=== PATIENT | male | born 1965 | race Caucasian/White ===

== ENCOUNTER → 2016-10-19 | Outpatient (CLI) | payer BC ==
[2016-10-19 11:13] LABS: BASO # 0.1 K/mm3 (0.0-0.2); BASO % 0.8 % (0.0-1.0); EOS # 0.5 K/mm3 (0.0-0.50); EOS % 6.4 % (0.0-3.0); LARGE UNSTAINED CELL # 0.1 K/mm3 (0.0-0.4); LARGE UNSTAINED CELL % 1.6 % (0.0-4.0); LYMPH # 1.9 K/mm3 (1.5-4.5); LYMPH % 23.1 % (24.0-44.0); MEAN CORPUSCULAR HEMOGLOBIN 33.8 pg (27.0-33.0); MEAN CORPUSCULAR HGB CONC 33.2 g/dl (32.0-36.5); MONO # 0.4 K/mm3 (0.0-0.8); MONO % 5.7 % (0.0-5.0); NEUTROPHILS # 4.7 K/mm3 (1.8-7.7); NEUTROPHILS % 62.3 % (36.0-66.0); PLATELET COUNT, AUTOMATED 329 k/mm3 (150-450); RED CELL DISTRIBUTION WIDTH 13.4 % (11.5-14.5); WHITE BLOOD COUNT 7.5 K/mm3 (4.0-10.0)
[2016-10-19 11:40] LABS: VITAMIN B12 LEVEL 346 PG/ML (247-911)
[2016-10-19 12:00] LABS: ALBUMIN 3.6 GM/DL (3.2-5.2); ALBUMIN/GLOBULIN RATIO 1.09 (1.00-1.93); ALKALINE PHOSPHATASE 101 U/L (45-117); ALT/SGPT 17 U/L (12-78); ANION GAP 3 MEQ/L (8-16); AST/SGOT 15 U/L (15-37); BILIRUBIN,TOTAL 0.4 MG/DL (0.2-1.0); BLOOD UREA NITROGEN 10 MG/DL (7-18); CALCIUM LEVEL 8.7 MG/DL (8.5-10.1); CARBON DIOXIDE LEVEL 32 MEQ/L (21-32); CHLORIDE LEVEL 103 MEQ/L (98-107); CREATININE FOR GFR 0.84 MG/DL (0.70-1.30); FERRITIN 200 NG/ML (26-388); GLOMERULAR FILTRATION RATE > 60.0 (>56); GLUCOSE, FASTING 68 MG/DL (70-105); MAGNESIUM LEVEL 2.1 MG/DL (1.8-2.4); POTASSIUM SERUM 4.8 MEQ/L (3.5-5.1); SODIUM LEVEL 138 MEQ/L (136-145); TOTAL IRON BINDING CAPACITY 277 UG/DL (250-450); TOTAL PROTEIN 6.9 GM/DL (6.4-8.2)
[2016-10-21 12:05] LABS: PRETREATED FOLATE FOR RBCFOL 3.8 NG/ML
== END ==
LOC: M LAB 10:38
PROVIDERS: ATTEND Surgery
DX: K91.2 Postsurgical malabsorption, not elsewhere classified (principal); Z98.84 Bariatric surgery status; E55.9 Vitamin D deficiency, unspecified

== ENCOUNTER → 2016-11-14 | Outpatient (CLI) | payer BC ==
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
== END ==
LOC: M PAIN 11:20
PROVIDERS: ATTEND Nurse Practitioner Family
DX: G89.29 Other chronic pain (principal); M51.26 Other intervertebral disc displacement, lumbar region; M46.1 Sacroiliitis, not elsewhere classified; M54.16 Radiculopathy, lumbar region; F41.9 Anxiety disorder, unspecified; I48.91 Unspecified atrial fibrillation; F32.9 Major depressive disorder, single episode, unspecified; E78.5 Hyperlipidemia, unspecified; I10 Essential (primary) hypertension; G47.33 Obstructive sleep apnea (adult) (pediatric); Z98.84 Bariatric surgery status; Z87.891 Personal history of nicotine dependence; Z79.01 Long term (current) use of anticoagulants; Z79.891 Long term (current) use of opiate analgesic; Z79.899 Other long term (current) drug therapy; Z88.5 Allergy status to narcotic agent

== ENCOUNTER → 2017-01-05 | Outpatient (CLI) | payer OTHER, MEDICAID ==
[~2017-01-05] MED LIST: ISOVUE-M 300 61% 15ML VIAL (Q9967) As Ordered ONE; LIDOCAINE 1% SDV INJ 30 ML VIAL As Ordered ONE; diazePAM 5 MG TAB As Ordered ONE; methylPREDNISolone SUSP 40 MG/ML (DEPO-medrol) VIAL (J1030) As Ordered ONE; oxyCODONE 5MG TAB As Ordered ONE
--- NOTE | 2017-01-06 14:57 | REP ---
Partial lumbar spine series: Single view . History: Injection procedure for pain. Seven seconds of fluoroscopy time is reported. Findings: A sequence of three fluoroscopically obtained last image hold procedural spot radiographs of the lumbar spine document needle position and contrast injection associated with injection procedure. Signed by Lamont Walsh MD 01/06/2017 02:49 P
--- NOTE | 2017-01-15 23:49 | ECWPNPC ---
PATIENT NAME: DHAVAL LUNDBERG : 1965 GENDER: MALE VISIT DATE: 01/05/2017 DISCHARGE DATE: 01/05/17 1106 VISIT LOCKED DATE TIME: PHYSICIAN: NIHARIKA SANFORD RESOURCE: NIHARIKA SANFORD REASON FOR APPOINTMENT 1. LUMBAR INTERLAMIN EPIDURAL. HISTORY OF PRESENT ILLNESS HISTORY OF PRESENT ILLNESS: PAIN THE PATIENT DESCRIBES THE PAIN... FALL RISK SCREENING: SCREENING :NO FALLS IN THE PAST YEAR CURRENT MEDICATIONS TAKING VITAMIN B 12 500 MCG LOZENGE 2 LOZENGES ORALLY ONCE A DAY, NOTES: 01/04/17799 TAKING BUPROPION HCL ER (XL) 150 MG TABLET EXTENDED RELEASE 24 HOUR 1 TABLET IN THE MORNING ORALLY ONCE A DAY, NOTES: 01/04/17799 TAKING DEPAKOTE ER 500 MG TABLET EXTENDED RELEASE 24 HOUR ORALLY , NOTES: 01/04/17799 TAKING ELIQUIS 5 MG TABLET ORALLY , NOTES: 01/01/171999 TAKING FLEXERIL 10 MG TABLET 1 TABLET NEEDED ORALLY THREE TIMES A DAY, NOTES: 01/04/17799 TAKING GABAPENTIN 300 MG CAPSULE 1 CAPSULE ORALLY THREE TIMES A DAY, NOTES: 01/04/17799 TAKING LAMICTAL 100 MG TABLET 2 TABLETS ORALLY TWICE A DAY, NOTES: 01/04/17799 TAKING LUNESTA 3 MG TABLET 1 TABLET IMMEDIATELY BEFORE BEDTIME ORALLY ONCE A DAY, NOTES: 01/03/171999 TAKING PRAZOSIN HCL 1 MG CAPSULE 1 CAPSULE AT BEDTIME ORALLY ONCE A DAY, NOTES: 01/03/171999 TAKING SAPHRIS 5 MG TABLET SUBLINGUAL 1 TABLET UNDER THE TONGUE AND ALLOW TO DISSOLVE SUBLINGUAL TWICE A DAY, NOTES: 01/04/17799 TAKING TRAMADOL HCL 50 MG TABLET 1 TAB ORALLY EVERY 6 HOURS NEEDED/MMD#4, NOTES: 01/04/17799 TAKING WELLBUTRIN 100 MG TABLET 1 TABLET ORALLY ONCE A DAY, NOTES: 01/04/17799 TAKING MINIPRESS 1 MG CAPSULE 1 CAPSULE AT BEDTIME ORALLY ONCE A DAY, NOTES: 01/03/171999 MEDICATION LIST REVIEWED AND RECONCILED WITH THE PATIENT PAST MEDICAL HISTORY ANXIETY ATRIAL FIBRILLATION BACKACHE DVT RIGHT LEG DEPRESSION HYPERLIPIDEMIA HTN MENINGITIS ENRIQUETA USES CPAP PTSD LUMBAR DDD ALLERGIES CODEINE SULFATE: THROAT SWELLING: ALLERGY REVIEW OF SYSTEMS REVIEWED BY: PROVIDER: . CONSTITUTIONAL: ANY CHANGE IN YOUR MEDICAL CONDITION? NO . CHILLS NO . FEVER NO . INFECTION: DO YOU HAVE NEW INFECTIONS? NO . DO YOU HAVE HISTORY OF MRSA? NO . MUSCULOSKELETAL: ANY NEW PATTERNS OF PAIN OR NUMBNESS? NO . GASTROENTEROLOGY: ANY NEW CHANGE IN BOWEL CONTROL? NO . GENITOURINARY: ANY NEW CHANGE IN BLADDER CONTROL? NO . IS THERE A CHANCE YOU COULD BE ? NO . HEMATOLOGY/LYMPH: DO YOU TAKE ANY BLOOD THINNERS? (FOR EXAMPLE- COUMADIN, PLAVIX, AGGRENOX, PLATEL, PRADAXA, OR XARELTO) YES . WHEN WAS YOUR LAST DOSE? DATE: TIME: 01/01/171999 . NEUROLOGY: HAVE YOU FALLEN IN THE PAST 6 MONTHS? YES, END OF JUL. JUST LOST HIS BALANCE DUE TO BACK AND HIP PAIN. . ANY NEW EXTREMITY NUMBNESS OR WEAKNESS? NO . CARDIOLOGY: DO YOU HAVE A PACEMAKER OR DEFIBRILLATOR? 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 RESPIRATORY: HAVE YOU BEEN SICK IN THE PAST WEEK? NO . FEVER NO . FLU LIKE SYMPTOMS? NO . COUGH NO . INTEGUMENTARY: DO YOU HAVE ANY RASHES OR OPEN SORES? NO . ALLERGIC/IMMUNO: ARE YOU ALLERGIC TO SHELLFISH OR IV DYE? NO . ANY NEW ALLERGIES? NO . PSYCHIATRIC: DO YOU HAVE THOUGHTS OF HURTING YOURSELF OR SOMEONE ELSE? NO . ARE YOU ABUSED, NEGLECTED, OR IN AN UNSAFE ENVIRONMENT? NO . ENDOCRINOLOGY: ARE YOU DIABETIC? NO . OTHER: DO YOU NEED ANY PRESCRIPTIONS? NO . IF YES, PLEASE LIST: ____ . ANY NEW PROBLEMS WITH YOUR MEDICATIONS? NO . WHEN DID YOU LAST EAT? 01/04/172199 . WHEN DID YOU LAST DRINK? 01/04/172199 . WHAT DID YOU LAST DRINK? WATER . NAME OF PERSON DRIVING YOU HOME? YELLOW CAB . DO YOU HAVE ANY OTHER QUESTIONS OR CONCERNS NO . VITAL SIGNS WT 231 LBS, HT 70 IN, BMI 33.14 INDEX, BP 119/61 MM HG, HR 63 /MIN, RR 18 /MIN, TEMP 98.6 F, OXYGEN SAT % 97%, NA INITIALS IA 09:12, REVIEWED BY: AD. ASSESSMENTS INTERVERTEBRAL DISC DISORDERS WITH RADICULOPATHY, LUMBAR REGION - M51.16 (PRIMARY) PROCEDURES PRE PROCEDURE DIAGNOSIS LUMBAR DISC DISORDER WITH RADICULOPATHY POST PROCEDURE DIAGNOSIS LUMBAR DISC DISORDER WITH RADICULOPATHY PROCEDURE LUMBAR EPIDURAL STEROID INJECTION UNDER FLUOROSCOPIC GUIDANCE SURGEON DR. NIHARIKA SANFORD EN[employer]IRONMENTAL SERVICES ATTENDANT NONE ANESTHESIA LOCAL PRE PROCEDURE NOTE THE PATIENT HAS A HISTORY OF CHRONIC LOW BACK PAIN. I EVALUATE THE PATIENT AND REVIEWED THE CHART. I WENT OVER THE RISKS, ALTERNATIVES, AND BENEFITS ASSOCIATED WITH THIS PROCEDURE. THE PATIENT WOULD LIKE TO PROCEED AND GIVE CONSENT TO PERFORMED THE PROCEDURE. THE PATIENT DENIES UNEXPLAINABLE WEIGHT LOSS, FEVER, CHILLS, OR NEW CHANGES IN URINARY OR BOWEL CONTROL. DESCRIPTION OF PROCEDURE THE PATIENT WAS BROUGHT TO THE PROCEDURE ROOM AND PLACED IN THE PRONE POSITION. THE LUMBOSACRAL AREA WAS CLEANED WITH BETADINE SOLUTION AND DRAPED ASEPTICALLY. THE PROCEDURE WAS DONE UNDER STERILE CONDITIONS. I CHECKED LATERALITY AND THE LEVEL WHERE THE PROCEDURE WAS GOING TO BE PERFORMED WITH THE PATIENT AND THE SUPPORTING STAFF AT THE MOMENT OF THE TIME OUT IN THE PROCEDURE ROOM. UNDER FLUOROSCOPIC GUIDANCE, THE TARGET POINT WAS SELECTED AT THE INTERLAMINAR LEVEL OF L4-L5. LIDOCAINE WAS USED TO NUMB THE SKIN AND THE SUBCUTANEOUS TISSUE BELOW IT. EPIDURAL TUOHY NEEDLE, 17-GAUGE, WAS ADVANCED UNDER FLUOROSCOPIC GUIDANCE AND FOLLOWING PATIENT FEEDBACK UNTIL THE EPIDURAL SPACE WAS REACHED, 7 CM DEEP INTO THE SKIN BY THE LOSS OF RESISTANCE TECHNIQUE. ISOVUE M DYE 30%, 0.25 ML, WAS INJECTED SHOWING ADEQUATE SPREAD OF THE DYE. THEN, A SOLUTION OF 3 ML OF NORMAL SALINE WITH DEPO-MEDROL 60 MG WAS INJECTED SLOWLY FOLLOWING PATIENT FEEDBACK. THERE WAS NO EVIDENCE OF BLOOD, PARESTHESIA OR CEREBROSPINAL FLUID DURING THE PROCEDURE. THE PATIENT WAS SENT TO THE RECOVERY ROOM. THE PATIENT WAS MOVING THE EXTREMITIES AND DOING WELL. THERE WAS NO COMPLICATION DURING THE PROCEDURE. FLUOROSCOPY TIME WAS 7 SECONDS. POST PROCEDURE NOTE THE PATIENT WILL BE SEEN IN A FOLLOW UP IN THE NEXT FEW WEEKS. INSTRUCTIONS WERE GIVEN, QUESTIONS WERE ANSWERED, AND THE PATIENT EXPRESSED UNDERSTANDING AND AGREES WITH THE PLAN. I, XIANG ESPINAL, DOCUMENTED THE ABOVE INFORMATION ACTING A SCRIBE FOR DR. SANFORD. I HAVE REVIEWED THE ABOVE DOCUMENT, WRITTEN BY XIANG GRIFFITHS AND I VERIFY THAT IT IS [facility]UR[facility] DIAGNOSTIC [facility] FLUORO GUIDE SPINE INJECTION (PAIN)[id number] PROCEDURE CODES 60691 LUMBAR/SACRAL W/ IMAGING 6045F RADXPS IN END [id number] PXD DISPOSITION & COMMUNICATION FOLLOW UP 3 WEEKS ELECTRONICALLY SIGNED BY NIHARIKA SANFORD MD ON 01/15/2017 AT 10:26 PM EDT DISCLAIMER : THIS IS A VISIT SUMMARY EXTRACTED FROM THE [employer] CHART. IT IS NOT A COPY OF THE [employer] PROGRESS NOTE. LUIS
== END ==
LOC: M PAIN 08:40
PROVIDERS: ATTEND Anesthesiology
DX: M51.16 Intervertebral disc disorders with radiculopathy, lumbar region (principal); F41.9 Anxiety disorder, unspecified; I48.91 Unspecified atrial fibrillation; F32.9 Major depressive disorder, single episode, unspecified; E78.5 Hyperlipidemia, unspecified; I10 Essential (primary) hypertension; G47.33 Obstructive sleep apnea (adult) (pediatric); F43.10 Post-traumatic stress disorder, unspecified; M51.36 Other intervertebral disc degeneration, lumbar region; Z86.718 Personal history of other venous thrombosis and embolism; Z79.01 Long term (current) use of anticoagulants; Z79.891 Long term (current) use of opiate analgesic; Z79.899 Other long term (current) drug therapy; Z88.5 Allergy status to narcotic agent

== ENCOUNTER → 2017-02-02 | Outpatient (CLI) | payer OTHER, MEDICAID ==
--- NOTE | 2017-02-23 00:50 | ECWPNPC ---
PATIENT NAME: DHAVAL LUNDBERG : 1965 GENDER: MALE VISIT DATE: 02/02/2017 DISCHARGE DATE: 02/02/17 1046 VISIT LOCKED DATE TIME: PHYSICIAN: BRUCE MAIN RESOURCE: BRUCE MAIN REASON FOR APPOINTMENT 1. POST LE HISTORY OF PRESENT ILLNESS HISTORY OF PRESENT ILLNESS: PAIN THE PATIENT DESCRIBES THE PAIN... FALL RISK SCREENING: SCREENING :NO FALLS IN THE PAST YEAR TODAY'S VISIT: NOTES: RATES PAIN LEVEL TODAY 4-5/10. DESCRIBES PAIN CONSTANT, ACHING, BURNING, TENDER, THROBBING AND SHOOTING. PAIN IS CENTERED ACROSS THE LOW BACK AND DOWN RIGHT LEG TO LEVEL OF THE FOOT. IS S/P LESB COMPLETED ON 01/05/17. PAIN LEVEL PRIOR WAS 8/10 AND DECREASED OVER THE MONTH TO 4-5/10 AT RTC. IS USING THE CAN E FOR BALANCE. WILL BE SEEING BACK SURGEON 02/19/17. PAIN IN RIGHT LEG HAS DECREASED BY 40-60% SINCE INJECTION. MOST PAIN NOW IS IN UPPER BACK AND SHOULDERS. . CURRENT MEDICATIONS TAKING VITAMIN B 12 500 MCG LOZENGE 2 LOZENGES ORALLY ONCE A DAY TAKING BUPROPION HCL ER (XL) 150 MG TABLET EXTENDED RELEASE 24 HOUR 1 TABLET IN THE MORNING ORALLY ONCE A DAY TAKING DEPAKOTE ER 500 MG TABLET EXTENDED RELEASE 24 HOUR ORALLY TAKING ELIQUIS 5 MG TABLET ORALLY TAKING FLEXERIL 10 MG TABLET 1 TABLET NEEDED ORALLY THREE TIMES A DAY TAKING LAMICTAL 100 MG TABLET 2 TABLETS ORALLY TWICE A DAY TAKING GABAPENTIN 300 MG CAPSULE 1 CAPSULE ORALLY THREE TIMES A DAY TAKING LUNESTA 3 MG TABLET 1 TABLET IMMEDIATELY BEFORE BEDTIME ORALLY ONCE A DAY TAKING PRAZOSIN HCL 1 MG CAPSULE 1 CAPSULE AT BEDTIME ORALLY ONCE A DAY TAKING SAPHRIS 5 MG TABLET SUBLINGUAL 1 TABLET UNDER THE TONGUE AND ALLOW TO DISSOLVE SUBLINGUAL TWICE A DAY TAKING TRAMADOL HCL 50 MG TABLET 1 TAB ORALLY EVERY 6 HOURS NEEDED/MMD#4, NOTES: 01/04/17 0800 TAKING WELLBUTRIN 100 MG TABLET 1 TABLET ORALLY ONCE A DAY, NOTES: 01/04/17 0800 TAKING MINIPRESS 1 MG CAPSULE 1 CAPSULE AT BEDTIME ORALLY ONCE A DAY, NOTES: 01/03/171999 MEDICATION LIST REVIEWED AND RECONCILED WITH THE PATIENT PAST MEDICAL HISTORY ANXIETY ATRIAL FIBRILLATION BACKACHE DVT RIGHT LEG DEPRESSION HYPERLIPIDEMIA HTN MENINGITIS ENRIQUETA USES CPAP PTSD LUMBAR DDD ALLERGIES CODEINE SULFATE: THROAT SWELLING: ALLERGY SURGICAL HISTORY GASTRIC BYPASS 10/2015 HOSPITALIZATION/MAJOR DIAGNOSTIC PROCEDURE SURGERY RELATED REVIEW OF SYSTEMS REVIEWED BY: PROVIDER: BRUCE LEMUS . CONSTITUTIONAL: ANY CHANGE IN YOUR MEDICAL CONDITION? NO . CHILLS NO . FEVER NO . INFECTION: DO YOU HAVE NEW INFECTIONS? NO . DO YOU HAVE HISTORY OF MRSA? NO . MUSCULOSKELETAL: ANY NEW PATTERNS OF PAIN OR NUMBNESS? NO . GASTROENTEROLOGY: ANY NEW CHANGE IN BOWEL CONTROL? NO . GENITOURINARY: ANY NEW CHANGE IN BLADDER CONTROL? NO . IS THERE A CHANCE YOU COULD BE ? NO . HEMATOLOGY/LYMPH: DO YOU TAKE ANY BLOOD THINNERS? (FOR EXAMPLE- COUMADIN, PLAVIX, AGGRENOX, PLATEL, PRADAXA, OR XARELTO) YES, ELIQUIS . WHEN WAS YOUR LAST DOSE? DATE: TIME: . NEUROLOGY: HAVE YOU FALLEN IN THE PAST 6 MONTHS? YES, FELL LAST WEEK WALKING IN YARD, FELL FROM PAIN . ANY NEW EXTREMITY NUMBNESS OR WEAKNESS? NO . CARDIOLOGY: DO YOU HAVE A PACEMAKER OR DEFIBRILLATOR? YES, LOOP IMPLANT . IRREGULAR HEART BEAT ATRIAL FIB/ LOOP RECORDER. . RESPIRATORY: HAVE YOU BEEN SICK IN THE PAST WEEK? NO . FEVER NO . FLU LIKE SYMPTOMS? NO . COUGH NO . INTEGUMENTARY: DO YOU HAVE ANY RASHES OR OPEN SORES? NO . ALLERGIC/IMMUNO: ARE YOU ALLERGIC TO SHELLFISH OR IV DYE? NO . ANY NEW ALLERGIES? NO . PSYCHIATRIC: DO YOU HAVE THOUGHTS OF HURTING YOURSELF OR SOMEONE ELSE? NO . ARE YOU ABUSED, NEGLECTED, OR IN AN UNSAFE ENVIRONMENT? NO . ENDOCRINOLOGY: ARE YOU DIABETIC? NO . OTHER: DO YOU NEED ANY PRESCRIPTIONS? NO . IF YES, PLEASE LIST: ____ . ANY NEW PROBLEMS WITH YOUR MEDICATIONS? NO . WHEN DID YOU LAST EAT? ____ . WHEN DID YOU LAST DRINK? ____ . WHAT DID YOU LAST DRINK? ____ . NAME OF PERSON DRIVING YOU HOME? ____ . DO YOU HAVE ANY OTHER QUESTIONS OR CONCERNS NO . VITAL SIGNS WT 239.6 LBS, HT 70 IN, BMI 34.38 INDEX, BP 138/76 MM HG, HR 66 /MIN, RR 18 /MIN, TEMP 98.6 F, OXYGEN SAT % 96%, NA INITIALS SC 10:16, REVIEWED BY: LS. EXAMINATION GENERAL EXAMINATION: LUNGS:BILATERAL WHEEZES. HEART:HEART RATE IR- REGULAR. MUSCULOSKELETAL:TRIGGER POINTS AND TIGHT FIBROUS ELICITED WITH PAPATION OVER :RIGHT MID THORACIC PARASPINOUS MUSCLES. DECREASED THORACIC EXPANSION AND RANGE OF MOTION. . BALANCE OFF. CANE USED FOR SUPPORT. , MIN TENDERNESS OVER LUMBAR SPINOUS PROCESSES AND SACRUM. ASSESSMENTS LUMBAR DISC DISPLACEMENT WITHOUT MYELOPATHY - M51.26 (PRIMARY) SACROILIITIS - M46.1 LUMBAR RADICULOPATHY - M54.16 TREATMENT LUMBAR DISC DISPLACEMENT WITHOUT MYELOPATHY NOTES: WALK AND DO STRETCHES DAILY. PROCEDURE CODES FA211 ESTABILISHED PATIENT [facility] CHARGE DISPOSITION & COMMUNICATION FOLLOW UP MID MAR (REASON: BACK PAIN) ELECTRONICALLY SIGNED BY BROCK PONCE ON 02/22/2017 AT 06:10 PM EDT DISCLAIMER : THIS IS A VISIT SUMMARY EXTRACTED FROM THE [employer] CHART. IT IS NOT A COPY OF THE [employer] PROGRESS NOTE. MTDD
== END ==
LOC: M PAIN 10:00
PROVIDERS: ATTEND Nurse Practitioner Family
DX: G89.29 Other chronic pain (principal); M51.16 Intervertebral disc disorders with radiculopathy, lumbar region; M46.1 Sacroiliitis, not elsewhere classified; I48.91 Unspecified atrial fibrillation; F32.9 Major depressive disorder, single episode, unspecified; E78.5 Hyperlipidemia, unspecified; F41.9 Anxiety disorder, unspecified; I10 Essential (primary) hypertension; G47.33 Obstructive sleep apnea (adult) (pediatric); F43.10 Post-traumatic stress disorder, unspecified; Z88.5 Allergy status to narcotic agent; Z79.01 Long term (current) use of anticoagulants; Z79.891 Long term (current) use of opiate analgesic; Z79.899 Other long term (current) drug therapy; Z98.84 Bariatric surgery status

== ENCOUNTER → 2017-03-15 | Outpatient (CLI) | payer OTHER, MEDICAID ==
--- NOTE | 2017-03-16 00:43 | ECWPNPC ---
PATIENT NAME: DHAVAL LUNDBERG : 1965 GENDER: MALE VISIT DATE: 03/15/2017 DISCHARGE DATE: 03/15/17941 VISIT LOCKED DATE TIME: PHYSICIAN: BRUCE MAIN RESOURCE: BRUCE MAIN REASON FOR APPOINTMENT 1. BACK HISTORY OF PRESENT ILLNESS HISTORY OF PRESENT ILLNESS: PAIN THE PATIENT DESCRIBES THE PAIN... FALL RISK SCREENING: SCREENING :TWO OR MORE FALLS WITHOUT INJURY IN THE PAST YEAR TODAY'S VISIT: NOTES: RATES PAIN LEVEL TODAY 7/10. DESCRIBES PAIN CONSTANT, ACHING, BURNING, STABBING, SHOOTING TENDER AND THROBBING. REPORTS HE IS BETTER IN TERMS OF BACK PAIN. STATES DID HAVE RECENT APPOINTMENT AT [facility] AND THEY WILL BE SENDING INFO FOR REPEAT REQUEST FOR INJECTIONS. HAS HAD 2 EPISODES OF LOW HEART RATE CAUGHT ON LOOP RECORDER AND CARDIOLOGY OFFICE CALLED TO CHECK ON HIM. HAD NO CHEST PAIN, NO FATIGUE AND NO SHORTNESS OF BREATH. . CURRENT MEDICATIONS TAKING VITAMIN B 12 500 MCG LOZENGE 2 LOZENGES ORALLY ONCE A DAY TAKING BUPROPION HCL ER (XL) 150 MG TABLET EXTENDED RELEASE 24 HOUR 1 TABLET IN THE MORNING ORALLY ONCE A DAY TAKING DEPAKOTE ER 500 MG TABLET EXTENDED RELEASE 24 HOUR ORALLY TAKING ELIQUIS 5 MG TABLET ORALLY TAKING FLEXERIL 10 MG TABLET 1 TABLET NEEDED ORALLY THREE TIMES A DAY TAKING LAMICTAL 100 MG TABLET 2 TABLETS ORALLY TWICE A DAY TAKING GABAPENTIN 300 MG CAPSULE 1 CAPSULE ORALLY THREE TIMES A DAY TAKING LUNESTA 3 MG TABLET 1 TABLET IMMEDIATELY BEFORE BEDTIME ORALLY ONCE A DAY TAKING PRAZOSIN HCL 1 MG CAPSULE 1 CAPSULE AT BEDTIME ORALLY ONCE A DAY TAKING SAPHRIS 5 MG TABLET SUBLINGUAL 1 TABLET UNDER THE TONGUE AND ALLOW TO DISSOLVE SUBLINGUAL TWICE A DAY TAKING TRAMADOL HCL 50 MG TABLET 1 TAB ORALLY EVERY 6 HOURS NEEDED/MMD#4, NOTES: 01/04/17 0800 TAKING WELLBUTRIN 100 MG TABLET 1 TABLET ORALLY ONCE A DAY, NOTES: 01/04/17 0800 TAKING MINIPRESS 1 MG CAPSULE 1 CAPSULE AT BEDTIME ORALLY ONCE A DAY, NOTES: 01/03/171999 MEDICATION LIST REVIEWED AND RECONCILED WITH THE PATIENT PAST MEDICAL HISTORY ANXIETY ATRIAL FIBRILLATION BACKACHE DVT RIGHT LEG DEPRESSION HYPERLIPIDEMIA HTN MENINGITIS ENRIQUETA USES CPAP PTSD LUMBAR DDD ALLERGIES CODEINE SULFATE: THROAT SWELLING: ALLERGY SOCIAL HISTORY GENERAL: TOBACCO USE ARE YOU A:FORMER SMOKER ALCOHOL SCREENING DID YOU HAVE A DRINK CONTAINING ALCOHOL IN THE PAST YEAR?NO POINTS0 INTERPRETATIONNEGATIVE MARITAL STATUS: . PAIN CLINIC PFS, CLERGY, PUBLIC HEALTH REFERRALS HAS THE PATIENT BEEN EDUCATED REGARDING HIS/HER PLAN OF CARE?YES HAS THE PATIENT BEEN EDUCATED REGARDING PAIN, THE RISK FOR PAIN, THE IMPORTANCE OF EFFECTIVE PAIN MANAGEMENT, AND THE PAIN ASSESSMENT PROCESS?YES REVIEW OF SYSTEMS REVIEWED BY: PROVIDER: BRUCE LEMUS . CONSTITUTIONAL: ANY CHANGE IN YOUR MEDICAL CONDITION? NO . CHILLS NO . FEVER NO . INFECTION: DO YOU HAVE NEW INFECTIONS? NO . DO YOU HAVE HISTORY OF MRSA? NO . MUSCULOSKELETAL: ANY NEW PATTERNS OF PAIN OR NUMBNESS? NO . GASTROENTEROLOGY: ANY NEW CHANGE IN BOWEL CONTROL? NO . GENITOURINARY: ANY NEW CHANGE IN BLADDER CONTROL? NO . IS THERE A CHANCE YOU COULD BE ? NO . HEMATOLOGY/LYMPH: DO YOU TAKE ANY BLOOD THINNERS? (FOR EXAMPLE- COUMADIN, PLAVIX, AGGRENOX, PLATEL, PRADAXA, OR XARELTO) NO . WHEN WAS YOUR LAST DOSE? DATE: TIME: 03/15/17 . NEUROLOGY: HAVE YOU FALLEN IN THE PAST 6 MONTHS? NO, YES . ANY NEW EXTREMITY NUMBNESS OR WEAKNESS? NO . CARDIOLOGY: DO YOU HAVE A PACEMAKER OR DEFIBRILLATOR? NO BUT DOES HAVE LOOP RECORDER WHICH PROVIDES 23/01 INFO TO CARDIOLOGY - DR JAY . RESPIRATORY: HAVE YOU BEEN SICK IN THE PAST WEEK? NO . FEVER NO . FLU LIKE SYMPTOMS? NO . COUGH NO . INTEGUMENTARY: DO YOU HAVE ANY RASHES OR OPEN SORES? NO . ALLERGIC/IMMUNO: ARE YOU ALLERGIC TO SHELLFISH OR IV DYE? NO . ANY NEW ALLERGIES? NO . PSYCHIATRIC: DO YOU HAVE THOUGHTS OF HURTING YOURSELF OR SOMEONE ELSE? NO . ARE YOU ABUSED, NEGLECTED, OR IN AN UNSAFE ENVIRONMENT? NO . ENDOCRINOLOGY: ARE YOU DIABETIC? NO . OTHER: DO YOU NEED ANY PRESCRIPTIONS? NO . IF YES, PLEASE LIST: ____ . ANY NEW PROBLEMS WITH YOUR MEDICATIONS? NO . WHEN DID YOU LAST EAT? ____ . WHEN DID YOU LAST DRINK? ____ . WHAT DID YOU LAST DRINK? ____ . NAME OF PERSON DRIVING YOU HOME? ____ . DO YOU HAVE ANY OTHER QUESTIONS OR CONCERNS NO . VITAL SIGNS WT 238 LBS, HT 70 IN, BMI 34.15 INDEX, BP 108/64 MM HG, HR 60 /MIN, RR 18 /MIN, TEMP 98.2 F, OXYGEN SAT % 94%, NA INITIALS AW 0904, REVIEWED BY: BAMBI. EXAMINATION GENERAL EXAMINATION: PSYCHALERT , ORIENTED X 3 , APPROPRIATE MOOD AND AFFECT , VERY TALKATIVE. LUNGS:CLEAR TO AUSCULTATION BILATERALLY, NO WHEEZES, RALES OR RHONCHI. HEART:HEART RATE REGULAR. MUSCULOSKELETAL:POINT TENDERNESS OVER THE RIGHT SIJ. MINIMAL TENDERNESS OVER LUMBAR SPINOUS PROCESSES. FEW TRIGGER POINTS IDENTIFIED OVER LUMBOSACRAL AXIS. SLOW TO RISE TO STANDING POSITION. GAIT ANTALGIC. SOME ISSUES NOTED WITH BALANCE. EXTREMITIES:TRACE EDEMA BILATERAL LOWER EXTREMITIES. ASSESSMENTS LUMBAR DISC DISPLACEMENT WITHOUT MYELOPATHY - M51.26 (PRIMARY) SACROILIITIS - M46.1 LUMBAR RADICULOPATHY - M54.16 TREATMENT LUMBAR DISC DISPLACEMENT WITHOUT MYELOPATHY NOTES: CONTINUE ACTIVITY SUCH WALKING AND BICYCLE. PROCEDURE CODES FA211 ESTABILISHED PATIENT [facility] FACILITY CHARGE DISPOSITION & COMMUNICATION FOLLOW UP 6 WEEKS (REASON: BACK PAIN) ELECTRONICALLY SIGNED BY BROCK PONCE ON 03/15/2017 AT 11:02 AM EDT DISCLAIMER : THIS IS A VISIT SUMMARY EXTRACTED FROM THE [employer] CHART. IT IS NOT A COPY OF THE [employer] PROGRESS NOTE. LUIS
== END ==
LOC: M PAIN 09:00
PROVIDERS: ATTEND Nurse Practitioner Family
DX: G89.29 Other chronic pain (principal); M51.16 Intervertebral disc disorders with radiculopathy, lumbar region; M46.1 Sacroiliitis, not elsewhere classified; F41.9 Anxiety disorder, unspecified; I48.91 Unspecified atrial fibrillation; F32.9 Major depressive disorder, single episode, unspecified; E78.5 Hyperlipidemia, unspecified; I10 Essential (primary) hypertension; G47.33 Obstructive sleep apnea (adult) (pediatric); F43.10 Post-traumatic stress disorder, unspecified; M51.36 Other intervertebral disc degeneration, lumbar region; Z86.718 Personal history of other venous thrombosis and embolism; Z87.891 Personal history of nicotine dependence; Z88.5 Allergy status to narcotic agent; Z79.01 Long term (current) use of anticoagulants; Z79.891 Long term (current) use of opiate analgesic; Z79.899 Other long term (current) drug therapy

== ENCOUNTER → 2017-05-22 | Outpatient (CLI) | payer OTHER, MEDICAID | LOC: M PAIN 15:30 | PROVIDERS: ATTEND Anesthesiology | DX: Z53.29 Procedure and treatment not carried out because of patient's decision for other reasons (principal) ==

== ENCOUNTER → 2017-05-23 | Outpatient (CLI) | payer OTHER, MEDICAID ==
--- NOTE | 2017-06-04 23:54 | ECWPNPC ---
PATIENT NAME: DHAVAL LUNDBERG : 1965 GENDER: MALE VISIT DATE: 05/23/2017 DISCHARGE DATE: 05/23/17 1055 VISIT LOCKED DATE TIME: PHYSICIAN: BRUCE MAIN RESOURCE: BRUCE MAIN REASON FOR APPOINTMENT 1. LOW BACK HISTORY OF PRESENT ILLNESS HISTORY OF PRESENT ILLNESS: PAIN THE PATIENT DESCRIBES THE PAIN... FALL RISK SCREENING: SCREENING :NO FALLS IN THE PAST YEAR TODAY'S VISIT: NOTES: PAIN LEVEL DRAMATICALLY INCREASED AND HAS LOST CONTROL OF HIS LEGS. PAIN IS LIKE A LIGHTNING BOLT. MOVING FROM THE BACK TO THE RIGHT HIP AND SACRUM.NO NEW NUMBNESS IN LEGS. LAST LESB WAS 01/05/17. . CURRENT MEDICATIONS TAKING VITAMIN B 12 500 MCG LOZENGE 2 LOZENGES ORALLY ONCE A DAY TAKING BUPROPION HCL ER (XL) 150 MG TABLET EXTENDED RELEASE 24 HOUR 1 TABLET IN THE MORNING ORALLY ONCE A DAY TAKING DEPAKOTE ER 500 MG TABLET EXTENDED RELEASE 24 HOUR ORALLY DAILY TAKING ELIQUIS 5 MG TABLET ORALLY BID TAKING FLEXERIL 10 MG TABLET 1 TABLET NEEDED ORALLY THREE TIMES A DAY TAKING LAMICTAL 100 MG TABLET 2 TABLETS ORALLY TWICE A DAY TAKING LUNESTA 3 MG TABLET 1 TABLET IMMEDIATELY BEFORE BEDTIME ORALLY ONCE A DAY TAKING PRAZOSIN HCL 1 MG CAPSULE 1 CAPSULE AT BEDTIME ORALLY ONCE A DAY TAKING SAPHRIS 5 MG TABLET SUBLINGUAL 1 TABLET UNDER THE TONGUE AND ALLOW TO DISSOLVE SUBLINGUAL TWICE A DAY TAKING TRAMADOL HCL 50 MG TABLET 1 TAB ORALLY EVERY 6 HOURS NEEDED/MMD#4 NOT-TAKING GABAPENTIN 300 MG CAPSULE 1 CAPSULE ORALLY THREE TIMES A DAY NOT-TAKING WELLBUTRIN 100 MG TABLET 1 TABLET ORALLY ONCE A DAY NOT-TAKING MINIPRESS 1 MG CAPSULE 1 CAPSULE AT BEDTIME ORALLY ONCE A DAY MEDICATION LIST REVIEWED AND RECONCILED WITH THE PATIENT PAST MEDICAL HISTORY ANXIETY ATRIAL FIBRILLATION BACKACHE DVT RIGHT LEG DEPRESSION HYPERLIPIDEMIA HTN MENINGITIS ENRIQUETA USES CPAP PTSD LUMBAR DDD ALLERGIES CODEINE SULFATE: THROAT SWELLING: ALLERGY SOCIAL HISTORY GENERAL: TOBACCO USE ARE YOU A:FORMER SMOKER ALCOHOL SCREENING DID YOU HAVE A DRINK CONTAINING ALCOHOL IN THE PAST YEAR?NO POINTS0 INTERPRETATIONNEGATIVE MARITAL STATUS: . 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?NO PAIN CLINIC PFS, CLERGY, PUBLIC HEALTH REFERRALS PFS REFERRAL NEEDED?NO CLERGY REFERRAL NEEDED?NO PUBLIC HEALTH REFERRAL NEEDED?NO WAS THE PROVIDER NOTIFIED OF ANY PERTINENT INFO?NO HAS THE PATIENT BEEN EDUCATED REGARDING HIS/HER PLAN OF CARE?YES HAS THE PATIENT BEEN EDUCATED REGARDING PAIN, THE RISK FOR PAIN, THE IMPORTANCE OF EFFECTIVE PAIN MANAGEMENT, AND THE PAIN ASSESSMENT PROCESS?YES ADVANCE DIRECTIVES HEALTH CARE PROXY?NO WOULD YOU LIKE MORE INFORMATION?NO DO YOU HAVE A DNR?NO WOULD YOU LIKE MORE INFORMATION?NO LIVING WILL?NO WOULD YOU LIKE MORE INFORMATION?NO POWER OF SECOND WORKER?NO WOULD YOU LIKE MORE INFORMATION?NO REVIEW OF SYSTEMS REVIEWED BY: PROVIDER: . CONSTITUTIONAL: ANY CHANGE IN YOUR MEDICAL CONDITION? NO . CHILLS NO . FEVER NO . INFECTION: DO YOU HAVE NEW INFECTIONS? NO . DO YOU HAVE HISTORY OF MRSA? NO . MUSCULOSKELETAL: ANY NEW PATTERNS OF PAIN OR NUMBNESS? NO . GASTROENTEROLOGY: GENERAL STATUS POST GASTRIC BYPASS SURGERY. WEIGHT STABLE . ANY NEW CHANGE IN BOWEL CONTROL? NO . GENITOURINARY: ANY NEW CHANGE IN BLADDER CONTROL? NO . IS THERE A CHANCE YOU COULD BE ? NO . HEMATOLOGY/LYMPH: DO YOU TAKE ANY BLOOD THINNERS? (FOR EXAMPLE- COUMADIN, PLAVIX, AGGRENOX, PLATEL, PRADAXA, OR XARELTO) YES, ELIQUIS . WHEN WAS YOUR LAST DOSE? DATE:05/22/17 TIME: 2200 . NEUROLOGY: HAVE YOU FALLEN IN THE PAST 6 MONTHS? YES, TODAY . ANY NEW EXTREMITY NUMBNESS OR WEAKNESS? NO . CARDIOLOGY: DO YOU HAVE A PACEMAKER OR DEFIBRILLATOR? NO HAS LOOP RECORDER IN PLACE. HAS HAD NO NEW CARDIAC EVENTS. . DIZZINESS WHEN STANDING QUICKLY. . IRREGULAR HEART BEAT ON ELIQUIS . RESPIRATORY: HAVE YOU BEEN SICK IN THE PAST WEEK? NO . FEVER NO . FLU LIKE SYMPTOMS? NO . COUGH NO . INTEGUMENTARY: DO YOU HAVE ANY RASHES OR OPEN SORES? SCRAPES ON SHINS FROM FALLS . ALLERGIC/IMMUNO: ARE YOU ALLERGIC TO SHELLFISH OR IV DYE? NO . ANY NEW ALLERGIES? NO . PSYCHIATRIC: DO YOU HAVE THOUGHTS OF HURTING YOURSELF OR SOMEONE ELSE? NO . ARE YOU ABUSED, NEGLECTED, OR IN AN UNSAFE ENVIRONMENT? NO . ENDOCRINOLOGY: ARE YOU DIABETIC? NO . OTHER: DO YOU NEED ANY PRESCRIPTIONS? NO . IF YES, PLEASE LIST: ____ . ANY NEW PROBLEMS WITH YOUR MEDICATIONS? NO . WHEN DID YOU LAST EAT? ____ . WHEN DID YOU LAST DRINK? ____ . WHAT DID YOU LAST DRINK? ____ . NAME OF PERSON DRIVING YOU HOME? ____ . DO YOU HAVE ANY OTHER QUESTIONS OR CONCERNS NO . PSYCHOLOGY: ARE YOU RECEIVING COUNSELING? FOLLOWS WITH DR STANTON . SLEEP DISTURBANCES OCCASIONALLY DISRUPTED DUE TO PAIN . VITAL SIGNS WT 254 LBS, HT 70 IN, BMI 36.44 INDEX, BP 151/91 MM HG, HR 77 /MIN, RR 18 /MIN, TEMP 98.2 F, OXYGEN SAT % 99%, SAFE IN ENV? (Y/N) YES, NA INITIALS SC 10:14, REVIEWED BY: LUIS. EXAMINATION GENERAL EXAMINATION: PSYCHSPEACH RAPI, FOCUSED, PLEASANT TO INTERACT WITH. LUNGS:CLEAR TO AUSCULTATION BILATERALLY. HEART:HEART RATE REGULAR. MUSCULOSKELETAL:POINT TENDERNESS OVER LUMBAR SPINOUS PROCESSES . 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 PREVENTIVE MEDICINE PAIN CLINIC TEACHING: PROCEDURE TEACHING PRE-PROCEDURE TEACHING DONE AND PATIENT VERBALIZES UNDERSTANDING.. PROCEDURE CODES FA211 ESTABILISHED PATIENT [facility] CHARGE DISPOSITION & COMMUNICATION FOLLOW UP GAB - DO FIRST IN AM (REASON: CHECK AUTH FOR LESB INTRALAMINAL - ON ELIQUIS) ELECTRONICALLY SIGNED BY BROCK PONCE ON 06/03/2017 AT 12:19 PM EST DISCLAIMER : THIS IS A VISIT SUMMARY EXTRACTED FROM THE [employer] CHART. IT IS NOT A COPY OF THE [employer] PROGRESS NOTE. LUIS
== END ==
LOC: M PAIN 10:30
PROVIDERS: ATTEND Nurse Practitioner Family
DX: G89.29 Other chronic pain (principal); M51.26 Other intervertebral disc displacement, lumbar region; M46.1 Sacroiliitis, not elsewhere classified; M54.16 Radiculopathy, lumbar region; F41.9 Anxiety disorder, unspecified; F32.9 Major depressive disorder, single episode, unspecified; I10 Essential (primary) hypertension; I48.91 Unspecified atrial fibrillation; G47.33 Obstructive sleep apnea (adult) (pediatric); F43.10 Post-traumatic stress disorder, unspecified; Z88.5 Allergy status to narcotic agent; Z79.01 Long term (current) use of anticoagulants; Z79.891 Long term (current) use of opiate analgesic; Z79.899 Other long term (current) drug therapy; Z87.891 Personal history of nicotine dependence

== ENCOUNTER → 2017-06-01 | Outpatient (CLI) | payer OTHER, MEDICAID ==
--- NOTE | 2017-06-01 11:17 | REP ---
Partial lumbar spine series: Two views . History: Injection procedure for pain. Two views 21 seconds of fluoroscopy time is reported. Findings: A sequence of two fluoroscopically obtained last image hold procedural spot radiographs of the lumbar spine document needle position and contrast injection associated with injection procedure. Signed by Lamont Walsh MD 06/01/2017 11:09 A
--- NOTE | 2017-06-14 00:18 | ECWPNPC ---
PATIENT NAME: DHAVAL LUNDBERG : 1965 GENDER: MALE VISIT DATE: 06/01/2017 DISCHARGE DATE: 06/01/17 1110 VISIT LOCKED DATE TIME: PHYSICIAN: NIHARIKA SANFORD RESOURCE: NIHARIKA SANFORD REASON FOR APPOINTMENT 1. LESB INTRALAMINAL - ON ELIQUIS HISTORY OF PRESENT ILLNESS HISTORY OF PRESENT ILLNESS: PAIN THE PATIENT DESCRIBES THE PAIN... FALL RISK SCREENING: SCREENING :NO FALLS IN THE PAST YEAR CURRENT MEDICATIONS TAKING VITAMIN B 12 500 MCG LOZENGE 2 LOZENGES ORALLY ONCE A DAY, NOTES: 05/31 1900 TAKING BUPROPION HCL ER (XL) 150 MG TABLET EXTENDED RELEASE 24 HOUR 1 TABLET IN THE MORNING ORALLY ONCE A DAY, NOTES: 05/31 700 TAKING DEPAKOTE ER 500 MG TABLET EXTENDED RELEASE 24 HOUR ORALLY DAILY, NOTES: 05/31 700 TAKING ELIQUIS 5 MG TABLET ORALLY BID, NOTES: 05/28 1900 TAKING FLEXERIL 10 MG TABLET 1 TABLET NEEDED ORALLY THREE TIMES A DAY, NOTES: 05/31 1900 TAKING LAMICTAL 100 MG TABLET 2 TABLETS ORALLY TWICE A DAY, NOTES: 05/31 1900 TAKING LUNESTA 3 MG TABLET 1 TABLET IMMEDIATELY BEFORE BEDTIME ORALLY ONCE A DAY, NOTES: 05/31 1900 TAKING PRAZOSIN HCL 1 MG CAPSULE 1 CAPSULE AT BEDTIME ORALLY ONCE A DAY, NOTES: 05/31 1900 TAKING SAPHRIS 5 MG TABLET SUBLINGUAL 1 TABLET UNDER THE TONGUE AND ALLOW TO DISSOLVE SUBLINGUAL TWICE A DAY, NOTES: 05/31 1900 TAKING TRAMADOL HCL 50 MG TABLET 1 TAB ORALLY EVERY 6 HOURS NEEDED/MMD#4, NOTES: 05/31 1900 TAKING WELLBUTRIN 100 MG TABLET 1 TABLET ORALLY ONCE A DAY, NOTES: 05/31 1900 DISCONTINUED GABAPENTIN 300 MG CAPSULE 1 CAPSULE ORALLY THREE TIMES A DAY DISCONTINUED MINIPRESS 1 MG CAPSULE 1 CAPSULE AT BEDTIME ORALLY ONCE A DAY MEDICATION LIST REVIEWED AND RECONCILED WITH THE PATIENT PAST MEDICAL HISTORY ANXIETY ATRIAL FIBRILLATION BACKACHE DVT RIGHT LEG DEPRESSION HYPERLIPIDEMIA HTN MENINGITIS ENRIQUETA USES CPAP PTSD LUMBAR DDD ALLERGIES CODEINE SULFATE: THROAT SWELLING: ALLERGY SOCIAL HISTORY GENERAL: TOBACCO USE ARE YOU A:FORMER SMOKER ALCOHOL SCREENING DID YOU HAVE A DRINK CONTAINING ALCOHOL IN THE PAST YEAR?NO POINTS0 INTERPRETATIONNEGATIVE MARITAL STATUS: . 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 ADVANCE DIRECTIVES HEALTH CARE PROXY?NO WOULD YOU LIKE MORE INFORMATION?NO DO YOU HAVE A DNR?NO WOULD YOU LIKE MORE INFORMATION?NO LIVING WILL?NO WOULD YOU LIKE MORE INFORMATION?NO POWER OF TERRAPIN FISHER?NO WOULD YOU LIKE MORE INFORMATION?NO DOMESTIC VIOLENCE DO YOU FEEL SAFE IN YOUR ENVIRONMENT?YES REVIEW OF SYSTEMS REVIEWED BY: PROVIDER: . CONSTITUTIONAL: ANY CHANGE IN YOUR MEDICAL CONDITION? NO . CHILLS NO . FEVER NO . INFECTION: DO YOU HAVE NEW INFECTIONS? NO . DO YOU HAVE HISTORY OF MRSA? NO . MUSCULOSKELETAL: ANY NEW PATTERNS OF PAIN OR NUMBNESS? NO . GASTROENTEROLOGY: ANY NEW CHANGE IN BOWEL CONTROL? NO . GENITOURINARY: ANY NEW CHANGE IN BLADDER CONTROL? NO . IS THERE A CHANCE YOU COULD BE ? NO . HEMATOLOGY/LYMPH: DO YOU TAKE ANY BLOOD THINNERS? (FOR EXAMPLE- COUMADIN, PLAVIX, AGGRENOX, PLATEL, PRADAXA, OR XARELTO) YES ELIQUIS . WHEN WAS YOUR LAST DOSE? DATE: TIME: 05/28/17 190 . NEUROLOGY: HAVE YOU FALLEN IN THE PAST 6 MONTHS? YES,2-3 X TIMES, THE LAST TIME A COUPLE OF WEEKS AGO--HAS ABRASION LEFT VIVAS . ANY NEW EXTREMITY NUMBNESS OR WEAKNESS? NO . CARDIOLOGY: DO YOU HAVE A PACEMAKER OR DEFIBRILLATOR? NO HAS LOOP RECORDER--FOLLOWED BY DR. JAY IN [place]. . RESPIRATORY: HAVE YOU BEEN SICK IN THE PAST WEEK? NO . FEVER NO . FLU LIKE SYMPTOMS? NO . COUGH NO . INTEGUMENTARY: DO YOU HAVE ANY RASHES OR OPEN SORES? NO . ALLERGIC/IMMUNO: ARE YOU ALLERGIC TO SHELLFISH OR IV DYE? NO . ANY NEW ALLERGIES? NO . PSYCHIATRIC: DO YOU HAVE THOUGHTS OF HURTING YOURSELF OR SOMEONE ELSE? NO . ARE YOU ABUSED, NEGLECTED, OR IN AN UNSAFE ENVIRONMENT? NO . ENDOCRINOLOGY: ARE YOU DIABETIC? NO . OTHER: DO YOU NEED ANY PRESCRIPTIONS? NO . IF YES, PLEASE LIST: ____ . ANY NEW PROBLEMS WITH YOUR MEDICATIONS? NO . WHEN DID YOU LAST EAT? 05/31 1900 . WHEN DID YOU LAST DRINK? 06/01 0600 . WHAT DID YOU LAST DRINK? WATER . NAME OF PERSON DRIVING YOU HOME? MOM--CARLOS . DO YOU HAVE ANY OTHER QUESTIONS OR CONCERNS NO . VITAL SIGNS WT 254.0 LBS, HT 70 IN, BMI 36.44 INDEX, BP 131/82 MM HG, HR 69 /MIN, RR 16 /MIN, TEMP 97.6 F, OXYGEN SAT % 98%, SAFE IN ENV? (Y/N) Y, NA INITIALS TL 0834, REVIEWED BY: AD. ASSESSMENTS INTERVERTEBRAL DISC DISORDER WITH RADICULOPATHY OF LUMBAR REGION - M51.16 (PRIMARY) PROCEDURES PRE PROCEDURE DIAGNOSIS LUMBAR DISC DISORDER WITH RADICULOPATHY POST PROCEDURE DIAGNOSIS LUMBAR DISC DISORDER WITH RADICULOPATHY PROCEDURE LUMBAR EPIDURAL STEROID INJECTION UNDER FLUOROSCOPIC GUIDANCE SURGEON DR. NIHARIKA SANFORD BEAUTY SALES ADVISOR NONE ANESTHESIA LOCAL PRE PROCEDURE NOTE THE PATIENT HAS A HISTORY OF CHRONIC LOW BACK PAIN. I EVALUATE THE PATIENT AND REVIEWED THE CHART. I WENT OVER THE RISKS, ALTERNATIVES, AND BENEFITS ASSOCIATED WITH THIS PROCEDURE. THE PATIENT WOULD LIKE TO PROCEED AND GIVE CONSENT TO PERFORMED THE PROCEDURE. THE PATIENT DENIES UNEXPLAINABLE WEIGHT LOSS, FEVER, CHILLS, OR NEW CHANGES IN URINARY OR BOWEL CONTROL. DESCRIPTION OF PROCEDURE THE PATIENT WAS BROUGHT TO THE PROCEDURE ROOM AND PLACED IN THE PRONE POSITION. THE LUMBOSACRAL AREA WAS CLEANED WITH BETADINE SOLUTION AND DRAPED ASEPTICALLY. THE PROCEDURE WAS DONE UNDER STERILE CONDITIONS. I CHECKED LATERALITY AND THE LEVEL WHERE THE PROCEDURE WAS GOING TO BE PERFORMED WITH THE PATIENT AND THE SUPPORTING STAFF AT THE MOMENT OF THE TIME OUT IN THE PROCEDURE ROOM. UNDER FLUOROSCOPIC GUIDANCE, THE TARGET POINT WAS SELECTED AT THE INTERLAMINAR LEVEL OF L4-L5. LIDOCAINE WAS USED TO NUMB THE SKIN AND THE SUBCUTANEOUS TISSUE BELOW IT. EPIDURAL TUOHY NEEDLE, 17-GAUGE, WAS ADVANCED UNDER FLUOROSCOPIC GUIDANCE AND FOLLOWING PATIENT FEEDBACK UNTIL THE EPIDURAL SPACE WAS REACHED, 7 CM DEEP INTO THE SKIN BY THE LOSS OF RESISTANCE TECHNIQUE. ISOVUE M DYE 30%, 0.25 ML, WAS INJECTED SHOWING ADEQUATE SPREAD OF THE DYE. THEN, A SOLUTION OF 3 ML OF NORMAL SALINE WITH DEPO-MEDROL 60 MG WAS INJECTED SLOWLY FOLLOWING PATIENT FEEDBACK. THERE WAS NO EVIDENCE OF BLOOD, PARESTHESIA OR CEREBROSPINAL FLUID DURING THE PROCEDURE. THE PATIENT WAS SENT TO THE RECOVERY ROOM. THE PATIENT WAS MOVING THE EXTREMITIES AND DOING WELL. THERE WAS NO COMPLICATION DURING THE PROCEDURE. FLUOROSCOPY TIME WAS 21 SECONDS. POST PROCEDURE NOTE THE PATIENT WILL BE SEEN IN A FOLLOW UP IN THE NEXT FEW WEEKS. INSTRUCTIONS WERE GIVEN, QUESTIONS WERE ANSWERED, AND THE PATIENT EXPRESSED UNDERSTANDING AND AGREES WITH THE PLAN. I, XIANG ESPINAL, DOCUMENTED THE ABOVE INFORMATION ACTING A SCRIBE FOR DR. SANFORD. I HAVE REVIEWED THE ABOVE DOCUMENT, WRITTEN BY XIANG GRIFFITHS AND I VERIFY THAT IT IS [facility] FLUORO GUIDE SPINE INJECTION (PAIN)[id number] PROCEDURE CODES 23511 LUMBAR/SACRAL W/ IMAGING 6045F RADXPS IN END [id number] PXD DISPOSITION & COMMUNICATION FOLLOW UP 2 WEEKS ELECTRONICALLY SIGNED BY NIHARIKA SANFORD MD ON 06/13/2017 AT 09:43 PM EST DISCLAIMER : THIS IS A VISIT SUMMARY EXTRACTED FROM THE [employer] CHART. IT IS NOT A COPY OF THE [employer] PROGRESS NOTE. MTDD
== END ==
LOC: M PAIN 08:45
PROVIDERS: ATTEND Anesthesiology
DX: G89.29 Other chronic pain (principal); M51.16 Intervertebral disc disorders with radiculopathy, lumbar region; F41.9 Anxiety disorder, unspecified; F32.9 Major depressive disorder, single episode, unspecified; I48.91 Unspecified atrial fibrillation; I10 Essential (primary) hypertension; G47.33 Obstructive sleep apnea (adult) (pediatric); F43.10 Post-traumatic stress disorder, unspecified; Z88.5 Allergy status to narcotic agent; Z79.01 Long term (current) use of anticoagulants; Z79.891 Long term (current) use of opiate analgesic; Z79.899 Other long term (current) drug therapy; Z87.891 Personal history of nicotine dependence
CPT/HCPCS: 62323; J1030; Q9967

== ENCOUNTER → 2017-07-05 | Outpatient (REF) | payer OTHER ==
[2017-07-05 20:34] LABS: FOLATE 6.5 NG/ML; VITAMIN B12 LEVEL 475 PG/ML
== END ==
LOC: M LAB REF 17:25
DX: Z98.84 Bariatric surgery status (principal)

== ENCOUNTER 2017-08-18 14:56 | Inpatient (IN) | payer OTHER ==
[2017-08-18] MEDS: BUPIVACAINE HCL 0.25% 30 ML VIAL As Ordered (01:00)
[2017-08-18] MEDS: MORPHINE 4 MG/ML 1ML VIAL (J2270) IV ×5 (15:29→21:03)
[2017-08-18] MEDS: ONDANSETRON 4MG/2ML VIAL (J2405) IV (15:30)
[2017-08-18 15:43] LABS: BASO # 0.1 10^3/uL (0.0-0.2); BASO % 0.6 % (0.0-1.0); EOS # 0.3 10^3/uL (0.0-0.50); EOS % 2.8 % (0.0-3.0); HEMATOCRIT 47.6 % (42.0-52.0); HEMOGLOBIN 16.7 g/dl (14.0-18.0); IMMATURE GRANULOCYTE % 0.3 % (0-3.0); LYMPH # 2.6 10^3/uL (1.5-4.5); LYMPH % 25.7 % (24.0-44.0); MEAN CORPUSCULAR HEMOGLOBIN 33.9 pg (27.0-33.0); MEAN CORPUSCULAR HGB CONC 35.1 g/dl (32.0-36.5); MEAN CORPUSCULAR VOLUME 96.7 fl (80.0-96.0); MONO # 0.7 10^3/uL (0.0-0.8); MONO % 6.8 % (0.0-5.0); NEUTROPHILS # 6.4 10^3/uL (1.8-7.7); NEUTROPHILS % 63.8 % (36.0-66.0); PLATELET COUNT, AUTOMATED 346 10^3/uL (150-450); RED BLOOD COUNT 4.92 10^6/uL (4.30-6.10); RED CELL DISTRIBUTION WIDTH 13.4 % (11.5-14.5)
[2017-08-18 15:53] LABS: ALBUMIN 3.8 GM/DL (3.2-5.2); ALBUMIN/GLOBULIN RATIO 0.95 (1.00-1.93); ALKALINE PHOSPHATASE 125 U/L (45-117); ALT/SGPT 20 U/L (12-78); ANION GAP 9 MEQ/L (8-16); AST/SGOT 23 U/L (7-37); BILIRUBIN,DIRECT 0.1 MG/DL (0.0-0.2); BILIRUBIN,TOTAL 0.4 MG/DL (0.2-1.0); BLOOD UREA NITROGEN 12 MG/DL (7-18); CALCIUM LEVEL 9.2 MG/DL (8.5-10.1); CARBON DIOXIDE LEVEL 22 MEQ/L (21-32); CHLORIDE LEVEL 105 MEQ/L (98-107); CPK CREATINE PHOSPHOKINASE 646 U/L (39-308); CREATININE FOR GFR 1.07 MG/DL (0.70-1.30); GLOMERULAR FILTRATION RATE > 60.0 (>56); GLUCOSE, FASTING 140 MG/DL (70-100); LIPASE 158 U/L (73-393); MB/CK RELATIVE INDEX 0.15 (< OR =4); POTASSIUM SERUM 3.8 MEQ/L (3.5-5.1); SODIUM LEVEL 136 MEQ/L (136-145); TOTAL PROTEIN 7.8 GM/DL (6.4-8.2); TROPONIN I < 0.02 NG/ML (< 0.10)
[2017-08-18] MEDS: GASTROGRAFIN SOLUTION 30ML PO ×2 (16:54→17:34)
[2017-08-18] MEDS ORDERED: ISOVUE-370 76% 100ML VIAL (Q9967) As Ordered (17:28)
[2017-08-18] MEDS: PANTOPRAZOLE 40MG INJ (PROTONIX) (C9113) IV (17:33)
[2017-08-18] MEDS: PIPERACILLIN/TAZOBACTAM SOD 3.375 GM in APPROPRIATE DILUENT 1 EA IV (17:34)
[2017-08-18] MEDS: PANTOPRAZOLE SODIUM 40 MG in D5W 50 ML IV (17:38)
[2017-08-18] MEDS ORDERED: MORPHINE 2 MG/ML 1ML SYRINGE (J2270) As Ordered (20:54)
[2017-08-18] MEDS: LR 1,000 ML IV (21:03)
[2017-08-18] MEDS ORDERED: MIDAZOLAM INJ 2 MG/2 ML VIAL (J2250) As Ordered (22:25)
[2017-08-18] MEDS ORDERED: LIDOCAINE 2% INJ 100 MG/5 ML SDV (FOR ANES.) As Ordered (22:25)
[2017-08-18] MEDS ORDERED: fentaNYL 250 MCG/5 ML INJECTION (J3010) As Ordered (22:25)
[2017-08-18] MEDS ORDERED: ROCURONIUM BROMIDE 50 MG/5 ML VIAL As Ordered ×3 (22:25→23:45)
[2017-08-18] MEDS ORDERED: PROPOFOL 200 MG/20 ML VIAL As Ordered (22:25)
[2017-08-18] MEDS ORDERED: ePHEDrine INJ 50 MG/ML VIAL As Ordered (22:36)
[2017-08-18] MEDS ORDERED: HYDROmorphone HCL 2 MG/ML 1ML VIAL (J1170) As Ordered (23:29)
[2017-08-18] MEDS: ZOSYN 3.375 GM VIAL (J2543) As Ordered (23:44)
[2017-08-19] MEDS ORDERED: PIPERACILLIN/TAZOBACTAM SOD 3.375 GM in APPROPRIATE DILUENT 1 EA IV
[2017-08-19] MEDS ORDERED: ONDANSETRON 4MG/2ML VIAL (J2405) IV (01:15)
[2017-08-19] MEDS ORDERED: MORPHINE 4 MG/ML 1ML VIAL (J2270) IV ×2 (01:15)
[2017-08-19] MEDS: ONDANSETRON 4MG/2ML VIAL (J2405) IV (01:25)
[2017-08-19] MEDS ORDERED: ONDANSETRON 4MG/2ML VIAL (J2405) As Ordered (01:27)
[2017-08-19] MEDS ORDERED: METOCLOPRAMIDE INJ 10MG/2ML VIAL (J2765) IV (01:45)
[2017-08-19] MEDS ORDERED: fentaNYL 100 MCG/2 ML INJECTION (J3010) IV (01:45)
[2017-08-19] MEDS ORDERED: MEPERIDINE INJ 25 MG/ML VIAL (J2175) IV (01:45)
[2017-08-19] MEDS ORDERED: PERCOCET 5MG/325MG TAB PO (02:00)
[2017-08-19] MEDS: LR 1,000 ML IV ×5 (02:30→17:59)
[2017-08-19] MEDS: PIPERACILLIN/TAZOBACTAM SOD 3.375 GM in APPROPRIATE DILUENT 1 EA IV ×4 (02:59→20:12)
[2017-08-19 06:29] LABS: BASO % 0.1 % (0.0-1.0); HEMATOCRIT 41.9 % (42.0-52.0); IMMATURE GRANULOCYTE % 0.6 % (0-3.0); LYMPH # 0.6 10^3/uL (1.5-4.5); LYMPH % 3.8 % (24.0-44.0); MEAN CORPUSCULAR HEMOGLOBIN 33.2 pg (27.0-33.0); MEAN CORPUSCULAR HGB CONC 33.9 g/dl (32.0-36.5); MEAN CORPUSCULAR VOLUME 97.9 fl (80.0-96.0); MONO # 0.6 10^3/uL (0.0-0.8); MONO % 3.8 % (0.0-5.0); NEUTROPHILS # 14.6 10^3/uL (1.8-7.7); NEUTROPHILS % 91.7 % (36.0-66.0); PLATELET COUNT, AUTOMATED 262 10^3/uL (150-450); RED BLOOD COUNT 4.28 10^6/uL (4.30-6.10); RED CELL DISTRIBUTION WIDTH 13.6 % (11.5-14.5); WHITE BLOOD COUNT 15.9 10^3/uL (4.0-10.0)
[2017-08-19 06:40] LABS: HEMOGLOBIN 14.2 g/dl (14.0-18.0)
[2017-08-19 06:47] LABS: ANION GAP 9 MEQ/L (8-16); BLOOD UREA NITROGEN 17 MG/DL (7-18); CALCIUM LEVEL 8.2 MG/DL (8.5-10.1); CARBON DIOXIDE LEVEL 25 MEQ/L (21-32); CHLORIDE LEVEL 105 MEQ/L (98-107); CREATININE FOR GFR 0.98 MG/DL (0.70-1.30); GLOMERULAR FILTRATION RATE > 60.0 (>56); GLUCOSE, FASTING 139 MG/DL (70-100); POTASSIUM SERUM 4.3 MEQ/L (3.5-5.1); SODIUM LEVEL 139 MEQ/L (136-145)
[2017-08-19] MEDS: PANTOPRAZOLE 40MG INJ (PROTONIX) (C9113) IV ×2 (08:23→20:57)
[2017-08-19] MEDS: INFLUENZA QUADRIVALENT PF VACCINE 0.5ML SYRINGE (90686) IM (08:23)
[2017-08-19] MEDS: KETOROLAC 30 MG/ML VIAL (J1885) IV ×3 (09:38→22:12)
[2017-08-20] MEDS: PIPERACILLIN/TAZOBACTAM SOD 3.375 GM in APPROPRIATE DILUENT 1 EA IV ×4 (02:18→19:42)
[2017-08-20] MEDS: LR 1,000 ML IV ×2 (02:18→13:20)
[2017-08-20] MEDS: KETOROLAC 30 MG/ML VIAL (J1885) IV ×3 (06:01→19:51)
[2017-08-20] MEDS: PANTOPRAZOLE 40MG INJ (PROTONIX) (C9113) IV ×2 (07:58→20:40)
[2017-08-20 08:18] LABS: BASO % 0.3 % (0.0-1.0); EOS # 0.2 10^3/uL (0.0-0.50); HEMATOCRIT 38.7 % (42.0-52.0); HEMOGLOBIN 13.3 g/dl (14.0-18.0); IMMATURE GRANULOCYTE % 0.4 % (0-3.0); LYMPH # 1.3 10^3/uL (1.5-4.5); LYMPH % 14.2 % (24.0-44.0); MEAN CORPUSCULAR HEMOGLOBIN 33.3 pg (27.0-33.0); MEAN CORPUSCULAR HGB CONC 34.4 g/dl (32.0-36.5); MONO # 0.5 10^3/uL (0.0-0.8); MONO % 4.8 % (0.0-5.0); NEUTROPHILS # 7.4 10^3/uL (1.8-7.7); NEUTROPHILS % 78.3 % (36.0-66.0); PLATELET COUNT, AUTOMATED 243 10^3/uL (150-450); RED BLOOD COUNT 3.99 10^6/uL (4.30-6.10); RED CELL DISTRIBUTION WIDTH 13.6 % (11.5-14.5); WHITE BLOOD COUNT 9.4 10^3/uL (4.0-10.0)
[2017-08-20 08:47] LABS: ANION GAP 7 MEQ/L (8-16); BLOOD UREA NITROGEN 17 MG/DL (7-18); CALCIUM LEVEL 8.2 MG/DL (8.5-10.1); CARBON DIOXIDE LEVEL 26 MEQ/L (21-32); CHLORIDE LEVEL 107 MEQ/L (98-107); CREATININE FOR GFR 0.93 MG/DL (0.70-1.30); GLOMERULAR FILTRATION RATE > 60.0 (>56); GLUCOSE, FASTING 80 MG/DL (70-100); POTASSIUM SERUM 4.2 MEQ/L (3.5-5.1); SODIUM LEVEL 140 MEQ/L (136-145)
[2017-08-20] MEDS ORDERED: ACETAMINOPHEN TAB 650MG DOSE (2X325MG) PO (22:45)
[2017-08-20] MEDS: APIXABAN 5 MG TAB (ELIQUIS) PO (22:46)
[2017-08-21] MEDS: LR 1,000 ML IV (01:11)
[2017-08-21] MEDS: PIPERACILLIN/TAZOBACTAM SOD 3.375 GM in APPROPRIATE DILUENT 1 EA IV ×4 (02:01→21:12)
[2017-08-21] MEDS: KETOROLAC 30 MG/ML VIAL (J1885) IV ×2 (02:04→08:36)
[2017-08-21] MEDS: PANTOPRAZOLE 40MG INJ (PROTONIX) (C9113) IV ×2 (08:28→21:12)
[2017-08-21] MEDS: APIXABAN 5 MG TAB (ELIQUIS) PO ×2 (08:28→21:12)
[2017-08-21] MEDS: NORCO, ANEXSIA 5/325MG TABLET (HYDROcodone/ACETAMINOPHEN) PO ×2 (14:37→21:14)
[2017-08-22] MEDS: PIPERACILLIN/TAZOBACTAM SOD 3.375 GM in APPROPRIATE DILUENT 1 EA IV ×2 (02:45→07:45)
[2017-08-22] MEDS: NORCO, ANEXSIA 5/325MG TABLET (HYDROcodone/ACETAMINOPHEN) PO ×2 (02:48→10:56)
[2017-08-22 07:43] LABS: BASO % 0.6 % (0.0-1.0); EOS # 0.4 10^3/uL (0.0-0.50); EOS % 8.7 % (0.0-3.0); HEMATOCRIT 38.2 % (42.0-52.0); HEMOGLOBIN 13.3 g/dl (14.0-18.0); IMMATURE GRANULOCYTE % 0.4 % (0-3.0); LYMPH # 1.2 10^3/uL (1.5-4.5); LYMPH % 23.3 % (24.0-44.0); MEAN CORPUSCULAR HGB CONC 34.8 g/dl (32.0-36.5); MEAN CORPUSCULAR VOLUME 97.7 fl (80.0-96.0); MONO # 0.4 10^3/uL (0.0-0.8); MONO % 8.1 % (0.0-5.0); NEUTROPHILS % 58.9 % (36.0-66.0); PLATELET COUNT, AUTOMATED 233 10^3/uL (150-450); RED BLOOD COUNT 3.91 10^6/uL (4.30-6.10); WHITE BLOOD COUNT 5.1 10^3/uL (4.0-10.0)
[2017-08-22 08:01] LABS: ALBUMIN 2.9 GM/DL (3.2-5.2); ALBUMIN/GLOBULIN RATIO 0.81 (1.00-1.93); ALKALINE PHOSPHATASE 64 U/L (45-117); ALT/SGPT 15 U/L (12-78); ANION GAP 7 MEQ/L (8-16); AST/SGOT 27 U/L (7-37); BILIRUBIN,TOTAL 0.6 MG/DL (0.2-1.0); BLOOD UREA NITROGEN 13 MG/DL (7-18); CALCIUM LEVEL 8.2 MG/DL (8.5-10.1); CARBON DIOXIDE LEVEL 25 MEQ/L (21-32); CHLORIDE LEVEL 108 MEQ/L (98-107); CREATININE FOR GFR 0.89 MG/DL (0.70-1.30); GLOMERULAR FILTRATION RATE > 60.0 (>56); GLUCOSE, FASTING 90 MG/DL (70-100); POTASSIUM SERUM 3.6 MEQ/L (3.5-5.1); SODIUM LEVEL 140 MEQ/L (136-145); TOTAL PROTEIN 6.5 GM/DL (6.4-8.2)
[2017-08-22] MEDS: APIXABAN 5 MG TAB (ELIQUIS) PO (09:10)
[2017-08-22] MEDS: PANTOPRAZOLE 40MG INJ (PROTONIX) (C9113) IV (09:10)
[2017-08-22] MEDS ORDERED: PANTOPRAZOLE 40MG TAB (PROTONIX) PO (21:00)
== END 2017-08-22 14:05 | disposition home or self-care (01) | DRG 220 ==
LOC: M MSPAV 08-19 02:07 → M PED 08-21 20:13 → M ED 14:56 → M ED INP 19:49
PROC: 0DU647Z Supplement Stomach with Autologous Tissue Substitute, Percutaneous Endoscopic Approach (ICD-10-PCS; principal; 2017-08-18 20:33)
DX: K91.89 Other postprocedural complications and disorders of digestive system (principal); K28.1 Acute gastrojejunal ulcer with perforation; I48.91 Unspecified atrial fibrillation; Z79.01 Long term (current) use of anticoagulants; Z79.899 Other long term (current) drug therapy

== ENCOUNTER → 2017-10-20 | Outpatient (CLI) | payer OTHER, MEDICAID ==
[~2017-10-20] MED LIST changes: +BUPIVACAINE HCL 0.25% 10 ML VIAL As Ordered; +BUPIVACAINE HCL 0.25% 30 ML VIAL As Ordered; -ISOVUE-M 300 61% 15ML VIAL (Q9967) As Ordered ONE; -LIDOCAINE 1% SDV INJ 30 ML VIAL As Ordered ONE; +TRIAMCINOLONE ACETONIDE SUSP 40 MG/ML VIAL (J3301) As Ordered; +diazePAM 5 MG TAB As Ordered; -diazePAM 5 MG TAB As Ordered ONE; -methylPREDNISolone SUSP 40 MG/ML (DEPO-medrol) VIAL (J1030) As Ordered ONE; +oxyCODONE 5MG TAB As Ordered; -oxyCODONE 5MG TAB As Ordered ONE
== END | disposition home or self-care (01) ==
LOC: M PAIN 10:30
DX: G89.29 Other chronic pain (principal); M79.1 Myalgia; F41.9 Anxiety disorder, unspecified; I48.91 Unspecified atrial fibrillation; F33.9 Major depressive disorder, recurrent, unspecified; E78.5 Hyperlipidemia, unspecified; I10 Essential (primary) hypertension; G47.33 Obstructive sleep apnea (adult) (pediatric); F43.10 Post-traumatic stress disorder, unspecified; Z98.84 Bariatric surgery status; M51.36 Other intervertebral disc degeneration, lumbar region; Z79.899 Other long term (current) drug therapy; Z79.01 Long term (current) use of anticoagulants; Z88.2 Allergy status to sulfonamides; Z88.5 Allergy status to narcotic agent; F17.290 Nicotine dependence, other tobacco product, uncomplicated
CPT/HCPCS: J3301

== ENCOUNTER 2017-10-24 12:55 | Day surgery (SDC) | payer OTHER ==
[2017-10-24] MEDS: LR 1,000 ML IV (13:00)
[2017-10-24] MEDS ORDERED: ACETAMINOPHEN TAB 650MG DOSE (2X325MG) As Ordered (15:03)
[2017-10-24] MEDS ORDERED: ACETAMINOPHEN TAB 650MG DOSE (2X325MG) PO (15:15)
[2017-10-24] MEDS ORDERED: PROPOFOL 200 MG/20 ML VIAL As Ordered (15:31)
[2017-10-24] MEDS ORDERED: LIDOCAINE 2% INJ 100 MG/5 ML SDV (FOR ANES.) As Ordered (15:31)
[2017-10-24] MEDS ORDERED: fentaNYL 100 MCG/2 ML INJECTION (J3010) As Ordered (15:31)
== END 2017-10-24 17:22 | disposition home or self-care (01) ==
LOC: M OPP 12:55
DX: K28.1 Acute gastrojejunal ulcer with perforation (principal); I10 Essential (primary) hypertension; K21.9 Gastro-esophageal reflux disease without esophagitis; R51 Headache; F41.9 Anxiety disorder, unspecified; F32.9 Major depressive disorder, single episode, unspecified; I48.91 Unspecified atrial fibrillation; Z79.891 Long term (current) use of opiate analgesic; Z79.899 Other long term (current) drug therapy; Z88.5 Allergy status to narcotic agent; Z98.84 Bariatric surgery status; Z90.49 Acquired absence of other specified parts of digestive tract; Z09 Encounter for follow-up examination after completed treatment for conditions other than malignant neoplasm
CPT/HCPCS: 43235

== ENCOUNTER → 2017-11-06 | Outpatient (CLI) | payer OTHER, MEDICAID | LOC: M PAIN 08:45 | DX: M51.16 Intervertebral disc disorders with radiculopathy, lumbar region (principal); M79.1 Myalgia; F41.9 Anxiety disorder, unspecified; F32.9 Major depressive disorder, single episode, unspecified; I10 Essential (primary) hypertension; G47.33 Obstructive sleep apnea (adult) (pediatric); F43.10 Post-traumatic stress disorder, unspecified; I48.91 Unspecified atrial fibrillation; F17.210 Nicotine dependence, cigarettes, uncomplicated; Z79.01 Long term (current) use of anticoagulants; Z79.891 Long term (current) use of opiate analgesic; Z79.899 Other long term (current) drug therapy; Z88.5 Allergy status to narcotic agent; Z98.84 Bariatric surgery status; Z86.718 Personal history of other venous thrombosis and embolism | CPT/HCPCS: G0463 ==

== ENCOUNTER → 2018-01-05 | Outpatient (CLI) | payer OTHER, MEDICAID | LOC: M PAIN 08:45 | DX: M51.16 Intervertebral disc disorders with radiculopathy, lumbar region (principal); M79.1 Myalgia; E78.5 Hyperlipidemia, unspecified; I10 Essential (primary) hypertension; G47.33 Obstructive sleep apnea (adult) (pediatric); F41.9 Anxiety disorder, unspecified; F43.10 Post-traumatic stress disorder, unspecified; F32.9 Major depressive disorder, single episode, unspecified; Z72.0 Tobacco use; Z79.899 Other long term (current) drug therapy; Z88.5 Allergy status to narcotic agent; Z91.09 Other allergy status, other than to drugs and biological substances; Z98.84 Bariatric surgery status; Z86.79 Personal history of other diseases of the circulatory system | CPT/HCPCS: G0463 ==

== ENCOUNTER → 2018-04-05 | Outpatient (CLI) | payer OTHER, MEDICAID | LOC: M PAIN 14:00 | DX: M79.10 Myalgia, unspecified site (principal); M51.16 Intervertebral disc disorders with radiculopathy, lumbar region; F41.9 Anxiety disorder, unspecified; F32.9 Major depressive disorder, single episode, unspecified; E78.5 Hyperlipidemia, unspecified; I10 Essential (primary) hypertension; G47.33 Obstructive sleep apnea (adult) (pediatric); F43.10 Post-traumatic stress disorder, unspecified; F17.291 Nicotine dependence, other tobacco product, in remission; Z79.01 Long term (current) use of anticoagulants; Z79.899 Other long term (current) drug therapy; Z88.5 Allergy status to narcotic agent; Z86.79 Personal history of other diseases of the circulatory system; Z98.84 Bariatric surgery status | CPT/HCPCS: G0463 ==

== ENCOUNTER → 2018-05-04 | Outpatient (CLI) | payer OTHER, MEDICAID | LOC: M PAIN 08:30 | DX: M79.18 Myalgia, other site (principal); M54.5 Low back pain; I48.91 Unspecified atrial fibrillation; I10 Essential (primary) hypertension; E78.5 Hyperlipidemia, unspecified; G47.33 Obstructive sleep apnea (adult) (pediatric); F41.9 Anxiety disorder, unspecified; F43.10 Post-traumatic stress disorder, unspecified; F32.9 Major depressive disorder, single episode, unspecified; F17.291 Nicotine dependence, other tobacco product, in remission; Z79.01 Long term (current) use of anticoagulants; Z79.899 Other long term (current) drug therapy; Z88.5 Allergy status to narcotic agent; Z98.84 Bariatric surgery status | CPT/HCPCS: J3301 ==

== ENCOUNTER → 2018-05-23 | Outpatient (CLI) | payer OTHER, MEDICAID | LOC: M PAIN 09:45 | DX: M79.18 Myalgia, other site (principal); M51.16 Intervertebral disc disorders with radiculopathy, lumbar region; I48.91 Unspecified atrial fibrillation; E78.5 Hyperlipidemia, unspecified; I10 Essential (primary) hypertension; F41.9 Anxiety disorder, unspecified; F32.9 Major depressive disorder, single episode, unspecified; F43.10 Post-traumatic stress disorder, unspecified; G47.33 Obstructive sleep apnea (adult) (pediatric); Z72.0 Tobacco use; Z79.01 Long term (current) use of anticoagulants; Z79.891 Long term (current) use of opiate analgesic; Z79.899 Other long term (current) drug therapy; Z88.5 Allergy status to narcotic agent; Z98.84 Bariatric surgery status | CPT/HCPCS: G0463 ==

== ENCOUNTER 2018-07-23 08:20 | Emergency (ER) | payer MEDICAID, OTHER ==
[~2018-07-23] VITALS: Ht 182.9 cm; Wt 107.3 kg
[~2018-07-23 08:20] MED LIST changes: -BUPIVACAINE HCL 0.25% 10 ML VIAL As Ordered; -BUPIVACAINE HCL 0.25% 30 ML VIAL As Ordered; +CYCL10TA PO; +ELIQ5TAB PO; +FLINCHW PO; +MULT1TAB10 PO; +PANT40TA3 PO; +TRAM50TA2 PO; -TRIAMCINOLONE ACETONIDE SUSP 40 MG/ML VIAL (J3301) As Ordered; -diazePAM 5 MG TAB As Ordered; -oxyCODONE 5MG TAB As Ordered
[2018-07-23] MEDS ORDERED: AMOX500C PO (09:01)
[2018-07-23 09:06] VITALS: BP 115/70
== END 2018-07-23 09:20 | disposition home or self-care (01) ==
LOC: M ED 08:20
DX: K04.7 Periapical abscess without sinus (principal); I10 Essential (primary) hypertension; K21.9 Gastro-esophageal reflux disease without esophagitis; F41.9 Anxiety disorder, unspecified; F33.9 Major depressive disorder, recurrent, unspecified; F43.10 Post-traumatic stress disorder, unspecified; F17.200 Nicotine dependence, unspecified, uncomplicated; M48.00 Spinal stenosis, site unspecified; Z86.718 Personal history of other venous thrombosis and embolism; Z88.5 Allergy status to narcotic agent; Z79.899 Other long term (current) drug therapy

== ENCOUNTER → 2018-08-23 | Outpatient (CLI) | payer OTHER, MEDICAID ==
[~2018-08-23] MED LIST changes: +AMOX500C PO
--- NOTE | 2018-09-08 23:54 | ECWPNPC ---
PATIENT NAME: DHAVAL LUNDBERG : 1965 GENDER: MALE VISIT DATE: 08/23/2018 DISCHARGE DATE: 08/23/1837 VISIT LOCKED DATE TIME: PHYSICIAN: ABNER BRIONES RESOURCE: ABNER BRIONES REASON FOR APPOINTMENT 1. BACK HISTORY OF PRESENT ILLNESS HISTORY OF PRESENT ILLNESS: HERE FOR F/U OF CHRONIC LOW BACK PAIN AND RIGHT LEG PAIN.STATES HE IS HAVING A GOOD DAY.RATING PAIN VAS 6/10.DESCRIBES PAIN CONTINUOUS,ACHING AND SHARP.DISCUSSED TREATMENT OPTIONS. PAIN THE PATIENT DESCRIBES THE PAIN... FALL RISK SCREENING: SCREENING : NO FALLS IN THE PAST YEAR. CURRENT MEDICATIONS TAKING VITAMIN B 12 500 MCG LOZENGE 2 LOZENGES ORALLY ONCE A DAY TAKING BUPROPION HCL ER (XL) 150 MG TABLET EXTENDED RELEASE 24 HOUR 1 TABLET IN THE MORNING ORALLY ONCE A DAY TAKING DEPAKOTE ER 500 MG TABLET EXTENDED RELEASE 24 HOUR ORALLY DAILY TAKING ELIQUIS 5 MG TABLET ORALLY BID TAKING FLEXERIL 10 MG TABLET 1 TABLET NEEDED ORALLY THREE TIMES A DAY TAKING LAMICTAL 100 MG TABLET 2 TABLETS ORALLY TWICE A DAY TAKING LUNESTA 3 MG TABLET 1 TABLET IMMEDIATELY BEFORE BEDTIME ORALLY ONCE A DAY TAKING PRAZOSIN HCL 1 MG CAPSULE 1 CAPSULE AT BEDTIME ORALLY ONCE A DAY TAKING SAPHRIS 5 MG TABLET SUBLINGUAL 1 TABLET UNDER THE TONGUE AND ALLOW TO DISSOLVE SUBLINGUAL TWICE A DAY TAKING TRAMADOL HCL 50 MG TABLET 1 TAB ORALLY EVERY 6 HOURS NEEDED/MMD#4 TAKING WELLBUTRIN 100 MG TABLET 1 TABLET ORALLY ONCE A DAY TAKING PANTOPRAZOLE SODIUM 40 MG TABLET DELAYED RELEASE 1 TABLET ORALLY ONCE A DAY TAKING RISPERIDONE 2 MG TABLET 1 TABLET ORALLY TWICE DAILY MEDICATION LIST REVIEWED AND RECONCILED WITH THE PATIENT PAST MEDICAL HISTORY ANXIETY ATRIAL FIBRILLATION BACKACHE DVT RIGHT LEG DEPRESSION HYPERLIPIDEMIA HTN MENINGITIS ENRIQUETA USES CPAP PTSD LUMBAR DDD/BACK PAIN GASTRIC BYPASS ALLERGIES CODEINE SULFATE: THROAT SWELLING: ALLERGY SURGICAL HISTORY GASTRIC BYPASS 10/2015 LOOP RECORDER 07/2016 BOWEL SURGERY S/P PERFORATION 08/2017 FAMILY HISTORY FATHER: 76 YRS MOTHER: ALIVE, CHF CRF-ON PERITONEAL DIALYSIS, DIAGNOSED WITH DIABETES, HEART DISEASE, OTHER SOCIAL HISTORY GENERAL: TOBACCO USE ARE YOU A:FORMER SMOKER OCCASIONAL CIGAR SMOKER HOW LONG HAS IT BEEN SINCE YOU LAST SMOKED? QUIT 08/17/18 SMOKING CESSATION INFORMATION GIVEN05/23/2018 ALCOHOL SCREENING DID YOU HAVE A DRINK CONTAINING ALCOHOL IN THE PAST YEAR?NO POINTS0 INTERPRETATIONNEGATIVE RECREATIONAL DRUG USE DRUG USE?NO ANGLICAN [id number] NONE NO CONFUCIANISM BELIEFS THAT WOULD IMPACT HEALTH CARE. LANGUAGE LANGUAGES SPOKEN:GERMAN LEARNING BARRIERS / SPECIAL NEEDS BARRIERS TO LEARNING?NO HEARING IMPAIRED?NO VISION IMPAIRED?YES :CORRECTIVE LENSES COGNITIVELY IMPAIRED?NO READINESS TO LEARN?YES DOMESTIC VIOLENCE DO YOU FEEL SAFE IN YOUR ENVIRONMENT?YES DIET: SMALL FEEDINGS SINCE GASTRIC BYPASS. PAIN CLINIC PFS, CLERGY, PUBLIC HEALTH REFERRALS PFS REFERRAL NEEDED?NO CLERGY REFERRAL NEEDED?NO PUBLIC HEALTH REFERRAL NEEDED?NO HAS THE PATIENT BEEN EDUCATED REGARDING HIS/HER PLAN OF CARE?YES HAS THE PATIENT BEEN EDUCATED REGARDING PAIN, THE RISK FOR PAIN, THE IMPORTANCE OF EFFECTIVE PAIN MANAGEMENT, AND THE PAIN ASSESSMENT PROCESS?YES ADVANCE DIRECTIVE ADVANCE DIRECTIVE DISCUSSED WITH PATIENT:YES 08/23/18 PT DOES NOT HAVE ANY ADVANCED DIRECTIVES AND HE DECLINES INFORMATION ON HCP AT THIS TIME. AD REVIEWED 05/23/18 NL08/23/18 REVIEWED WITH PT. AD. HOSPITALIZATION/MAJOR DIAGNOSTIC PROCEDURE SURGERY RELATED REVIEW OF SYSTEMS REVIEWED BY: PROVIDER: ABNER LEMUS . CONSTITUTIONAL: ANY CHANGE IN YOUR MEDICAL CONDITION? NO . CHILLS NO . FEVER NO . INFECTION: DO YOU HAVE NEW INFECTIONS? NO . DO YOU HAVE HISTORY OF MRSA? NO . MUSCULOSKELETAL: ANY NEW PATTERNS OF PAIN OR NUMBNESS? NO . GASTROENTEROLOGY: ANY NEW CHANGE IN BOWEL CONTROL? NO . GENITOURINARY: ANY NEW CHANGE IN BLADDER CONTROL? NO . IS THERE A CHANCE YOU COULD BE ? NO . HEMATOLOGY/LYMPH: DO YOU TAKE ANY BLOOD THINNERS? (FOR EXAMPLE- COUMADIN, PLAVIX, AGGRENOX, PLATEL, PRADAXA, OR XARELTO) YES, ELIQUIS . WHEN WAS YOUR LAST DOSE? DATE: TIME: 08/23/18 0700 . NEUROLOGY: HAVE YOU FALLEN IN THE PAST 12 MONTHS? YES, HAS FALLEN 3 TIMES, JUST LOST HIS BALANCE. JUST BRUISES AND SCRAPES. . ANY NEW EXTREMITY NUMBNESS OR WEAKNESS? NO . CARDIOLOGY: DO YOU HAVE A PACEMAKER OR DEFIBRILLATOR? NO HAS LOOP RECORDER . RESPIRATORY: HAVE YOU BEEN SICK IN THE PAST WEEK? NO . FEVER NO . FLU LIKE SYMPTOMS? NO . COUGH NO . INTEGUMENTARY: DO YOU HAVE ANY RASHES OR OPEN SORES? NO . ALLERGIC/IMMUNO: ARE YOU ALLERGIC TO IV DYE? NO . ANY NEW ALLERGIES? NO . PSYCHIATRIC: DO YOU HAVE THOUGHTS OF HURTING YOURSELF OR SOMEONE ELSE? YES, STATES THIS IS A DAILY THING. HE IS BEING FOLLOWED BY DR. MORGAN AND IS ON MEDICATIONS . ARE YOU ABUSED, NEGLECTED, OR IN AN UNSAFE ENVIRONMENT? NO . ENDOCRINOLOGY: ARE YOU DIABETIC? NO . OTHER: DO YOU NEED ANY PRESCRIPTIONS? NO . IF YES, PLEASE LIST: ____ . ANY NEW PROBLEMS WITH YOUR MEDICATIONS? NO . WHEN DID YOU LAST EAT? ____ . WHEN DID YOU LAST DRINK? ____ . WHAT DID YOU LAST DRINK? ____ . NAME OF PERSON DRIVING YOU HOME? ____ . DO YOU HAVE ANY OTHER QUESTIONS OR CONCERNS NO . VITAL SIGNS WT 241.8 LBS, HT 70 IN, BMI 34.69 INDEX, BP 132/88 MM HG, HR 76 /MIN, RR 18 /MIN, TEMP 97.5 F, OXYGEN SAT % 96%, NA INITIALS SC 08:47, REVIEWED BY: AD. EXAMINATION GENERAL EXAMINATION: PSYCHSPEACH RAPID, FOCUSED, PLEASANT TO INTERACT WITH. LUNGS:CLEAR TO AUSCULTATION BILATERALLY. HEART:HEART RATE REGULAR AT THIS TIME. MUSCULOSKELETAL: TRIGGER POINTS AND TIGHT FIBROUS BANDS IDENTIFIED OVER BILATERAL R>L LUMBAR PARAVERTEBRAL MUSCLES. RESTRICTION OF ROM WITH BACK FLEX/ROTATION AND EXTENSION. SLOW TO RISE TO STANDING POSITION. POSTURE UPRIGHT. ASSESSMENTS MYALGIA - M79.1 (PRIMARY) INTERVERTEBRAL DISC DISORDER WITH RADICULOPATHY OF LUMBAR REGION - M51.16 LUMBAR RADICULOPATHY - M54.16 TREATMENT MYALGIA NOTES: TPI LOW BACK OCTOBER. PROCEDURE CODES FA211 ESTABILISHED PATIENT [facility] CHARGE DISPOSITION & COMMUNICATION FOLLOW UP POST (REASON: TPI LOW BACK OCTOBER) ELECTRONICALLY SIGNED BY ALLAN DYE ON 09/07/2018 AT 09:47 AM EST DISCLAIMER : THIS IS A VISIT SUMMARY EXTRACTED FROM THE [employer] CHART. IT IS NOT A COPY OF THE [employer] PROGRESS NOTE. LUIS
== END ==
LOC: M PAIN 09:00
PROVIDERS: ATTEND Nurse Practitioner Family
DX: M79.18 Myalgia, other site (principal); M51.16 Intervertebral disc disorders with radiculopathy, lumbar region; I10 Essential (primary) hypertension; E78.5 Hyperlipidemia, unspecified; F41.9 Anxiety disorder, unspecified; F32.9 Major depressive disorder, single episode, unspecified; F43.10 Post-traumatic stress disorder, unspecified; G47.33 Obstructive sleep apnea (adult) (pediatric); Z79.01 Long term (current) use of anticoagulants; Z79.899 Other long term (current) drug therapy; Z88.2 Allergy status to sulfonamides; Z87.891 Personal history of nicotine dependence; Z86.79 Personal history of other diseases of the circulatory system; Z98.84 Bariatric surgery status

== ENCOUNTER → 2018-10-23 | Outpatient (CLI) | payer OTHER, MEDICAID ==
--- NOTE | 2018-11-07 01:36 | ECWPNPC ---
PATIENT NAME: DHAVAL LUNDBERG : 1965 GENDER: MALE VISIT DATE: 10/23/2018 DISCHARGE DATE: 10/23/18929 VISIT LOCKED DATE TIME: PHYSICIAN: ABNER BRIONES RESOURCE: ABNER BRIONES REASON FOR APPOINTMENT 1. POST TPI HISTORY OF PRESENT ILLNESS HISTORY OF PRESENT ILLNESS: HERE FOR POST PROCEDURE F/U.HAD TPI 10-09-18 LOW RIGHT THORACIC AND RIGHT LOW BACK.REPORTING SIGNIFICANT IMPROVEMENT IN PAIN.RATING PAIN VAS 3/10.PAIN IS OVER ENTIRE BACK WITH RADIATION DOWN RIGHT LEG.DESCRIBES PAIN CONSTANT,ACHING AND BURNING.OVERALL HAPPY WITH PAIN CONTROL AT THIS POINT. PAIN THE PATIENT DESCRIBES THE PAIN... THE PATIENT DESCRIBES THE PAIN... FALL RISK SCREENING: SCREENING :NO FALLS REPORTED IN THE LAST YEAR CURRENT MEDICATIONS TAKING VITAMIN B 12 500 MCG LOZENGE 2 LOZENGES ORALLY ONCE A DAY TAKING BUPROPION HCL ER (XL) 150 MG TABLET EXTENDED RELEASE 24 HOUR 1 TABLET IN THE MORNING ORALLY ONCE A DAY TAKING DEPAKOTE ER 500 MG TABLET EXTENDED RELEASE 24 HOUR ORALLY DAILY TAKING ELIQUIS 5 MG TABLET ORALLY BID TAKING FLEXERIL 10 MG TABLET 1 TABLET NEEDED ORALLY THREE TIMES A DAY TAKING LAMICTAL 100 MG TABLET 2 TABLETS ORALLY TWICE A DAY TAKING LUNESTA 3 MG TABLET 1 TABLET IMMEDIATELY BEFORE BEDTIME ORALLY ONCE A DAY TAKING PRAZOSIN HCL 1 MG CAPSULE 1 CAPSULE AT BEDTIME ORALLY ONCE A DAY TAKING SAPHRIS 5 MG TABLET SUBLINGUAL 1 TABLET UNDER THE TONGUE AND ALLOW TO DISSOLVE SUBLINGUAL TWICE A DAY TAKING TRAMADOL HCL 50 MG TABLET 1 TAB ORALLY EVERY 6 HOURS NEEDED/MMD#4 TAKING WELLBUTRIN 100 MG TABLET 1 TABLET ORALLY ONCE A DAY TAKING PANTOPRAZOLE SODIUM 40 MG TABLET DELAYED RELEASE 1 TABLET ORALLY ONCE A DAY NOT-TAKING RISPERIDONE 2 MG TABLET 1 TABLET ORALLY TWICE DAILY MEDICATION LIST REVIEWED AND RECONCILED WITH THE PATIENT PAST MEDICAL HISTORY ANXIETY ATRIAL FIBRILLATION BACKACHE DVT RIGHT LEG DEPRESSION HYPERLIPIDEMIA HTN MENINGITIS ENRIQUETA USES CPAP PTSD LUMBAR DDD/BACK PAIN GASTRIC BYPASS ALLERGIES CODEINE SULFATE: THROAT SWELLING - ALLERGY SURGICAL HISTORY GASTRIC BYPASS 10/2015 LOOP RECORDER 07/2016 BOWEL SURGERY S/P PERFORATION 08/2017 FAMILY HISTORY FATHER: 76 YRS MOTHER: ALIVE, CHF CRF-ON PERITONEAL DIALYSIS, DIAGNOSED WITH DIABETES, HEART DISEASE, OTHER SOCIAL HISTORY GENERAL: TOBACCO USE ARE YOU A:FORMER SMOKER OCCASIONAL CIGAR SMOKER HOW LONG HAS IT BEEN SINCE YOU LAST SMOKED? QUIT 08/17/18 SMOKING CESSATION INFORMATION GIVEN05/23/2018 LATEX QUESTIONNAIRE LATEX ALLERGY : HAVE YOU EVER DEVELOPED ANY TYPE OF REACTION AFTER HANDLING LATEX PRODUCTS SUCH RUBBER GLOVES, CONDOMS, DIAPHRAGMS, BALLOONS, SOCKS, OR UNDERWEAR?NO LATEX ALLERGY : HAVE YOU EVER DEVELOPED ANY TYPE OF REACTION DURING OR AFTER DENTAL APPOINTMENT, VAGINAL/RECTAL EXAMINATION, SURGICAL PROCEDURE, OR ANY OTHER EXPOSURE?NO LATEX RISK : HAVE YOU EVER HAD ANY DIFFICULTY BREATHING OR HIVES AFTER EATING OR HANDLING ANY FRUITS, OR VEGETABLES; SUCH KIWI, BANANAS, STONE FRUITS, OR CHESTNUTSNO LATEX RISK : DO YOU HAVE A PREVIOUS PERSONAL HISTORY OF MORE THAN NINE SURGERIES, SPINA BIFIDA, OR REPEATED CATHERTIZATIONS? NO LATEX RISK : ARE YOU FREQUENTLY EXPOSED TO LATEX PRODUCTS IN YOUR OCCUPATION?NO DATE ASKED : 10/09/2018 ALCOHOL SCREENING DID YOU HAVE A DRINK CONTAINING ALCOHOL IN THE PAST YEAR?NO POINTS0 INTERPRETATIONNEGATIVE RECREATIONAL DRUG USE DRUG USE?NO PROTESTANT [id number] NONE NO ALEVISM BELIEFS THAT WOULD IMPACT HEALTH CARE. LANGUAGE LANGUAGES SPOKEN:BANGLADESHI LEARNING BARRIERS / SPECIAL NEEDS BARRIERS TO LEARNING?NO HEARING IMPAIRED?NO VISION IMPAIRED?YES :CORRECTIVE LENSES COGNITIVELY IMPAIRED?NO READINESS TO LEARN?YES DOMESTIC VIOLENCE DO YOU FEEL SAFE IN YOUR ENVIRONMENT?YES DIET: SMALL FEEDINGS SINCE GASTRIC BYPASS. PAIN CLINIC PFS, CLERGY, PUBLIC HEALTH REFERRALS PFS REFERRAL NEEDED?NO CLERGY REFERRAL NEEDED?NO PUBLIC HEALTH REFERRAL NEEDED?NO HAS THE PATIENT BEEN EDUCATED REGARDING HIS/HER PLAN OF CARE?YES HAS THE PATIENT BEEN EDUCATED REGARDING PAIN, THE RISK FOR PAIN, THE IMPORTANCE OF EFFECTIVE PAIN MANAGEMENT, AND THE PAIN ASSESSMENT PROCESS?YES ADVANCE DIRECTIVE ADVANCE DIRECTIVE DISCUSSED WITH PATIENT:YES PT DOES NOT HAVE ANY ADVANCED DIRECTIVES AND HE DECLINES INFORMATION ON HCP AT THIS TIME. REVIEWED 05/23/18 NL08/23/18 REVIEWED WITH PT. NIGHAT WITH PATIENT 10/09/18 0855 JS. HOSPITALIZATION/MAJOR DIAGNOSTIC PROCEDURE SURGERY RELATED REVIEW OF SYSTEMS REVIEWED BY: PROVIDER: ABNER LEMUS . CONSTITUTIONAL: ANY CHANGE IN YOUR MEDICAL CONDITION? NO . CHILLS NO . FEVER NO . INFECTION: DO YOU HAVE NEW INFECTIONS? NO . DO YOU HAVE HISTORY OF MRSA? NO . MUSCULOSKELETAL: ANY NEW PATTERNS OF PAIN OR NUMBNESS? YES, PAIN IS BETTER . GASTROENTEROLOGY: ANY NEW CHANGE IN BOWEL CONTROL? NO . GENITOURINARY: ANY NEW CHANGE IN BLADDER CONTROL? NO . IS THERE A CHANCE YOU COULD BE ? NO . HEMATOLOGY/LYMPH: DO YOU TAKE ANY BLOOD THINNERS? (FOR EXAMPLE- COUMADIN, PLAVIX, AGGRENOX, PLATEL, PRADAXA, OR XARELTO) YES, ELIQUIS . WHEN WAS YOUR LAST DOSE? DATE: TIME: . NEUROLOGY: HAVE YOU FALLEN IN THE PAST 12 MONTHS? YES, PRIOR TO LAST VISIT . ANY NEW EXTREMITY NUMBNESS OR WEAKNESS? NO . CARDIOLOGY: DO YOU HAVE A PACEMAKER OR DEFIBRILLATOR? YES, LOOP RECORDER . RESPIRATORY: HAVE YOU BEEN SICK IN THE PAST WEEK? NO . FEVER NO . FLU LIKE SYMPTOMS? NO . COUGH NO . INTEGUMENTARY: DO YOU HAVE ANY RASHES OR OPEN SORES? NO . ALLERGIC/IMMUNO: ARE YOU ALLERGIC TO IV DYE? NO . ANY NEW ALLERGIES? NO . PSYCHIATRIC: DO YOU HAVE THOUGHTS OF HURTING YOURSELF OR SOMEONE ELSE? YES, UNCHANGED IS RECEIVING TX AND IS NOT SELF DIRECTED . ARE YOU ABUSED, NEGLECTED, OR IN AN UNSAFE ENVIRONMENT? NO . ENDOCRINOLOGY: ARE YOU DIABETIC? NO . OTHER: DO YOU NEED ANY PRESCRIPTIONS? NO . IF YES, PLEASE LIST: ____ . ANY NEW PROBLEMS WITH YOUR MEDICATIONS? NO . WHEN DID YOU LAST EAT? ____ . WHEN DID YOU LAST DRINK? ____ . WHAT DID YOU LAST DRINK? ____ . NAME OF PERSON DRIVING YOU HOME? ____ . DO YOU HAVE ANY OTHER QUESTIONS OR CONCERNS NO . VITAL SIGNS WT 236 LBS, HT 70 IN, BMI 33.86 INDEX, BP 144/88 MM HG, HR 66 /MIN, RR 18 /MIN, TEMP 97.1 F, OXYGEN SAT % 98%, NA INITIALS SC 09:08, REVIEWED BY: EM. EXAMINATION GENERAL EXAMINATION: GENERAL APPEARANCE:AWAKE,ALERT ,PLEAASANT . PSYCHAFFECT NORMAL . LUNGS:LUNG LEWIS ARE CLEAR TO AUSCULTATION BILATERALLY. GOOD MOVEMENT OF AIR . HEART:S1, S2 IN A REGULAR RATE AND RHYTHM. NO SIGNIFICANT MURMURS, RUBS OR GALLOPS NOTED . ASSESSMENTS INTERVERTEBRAL DISC DISORDER WITH RADICULOPATHY OF LUMBAR REGION - M51.16 (PRIMARY) LUMBAR RADICULOPATHY - M54.16 TREATMENT INTERVERTEBRAL DISC DISORDER WITH RADICULOPATHY OF LUMBAR REGION NOTES: CONTINUE HOME EXCERSISE AND STRETCHING. PROCEDURE CODES FA211 ESTABILISHED PATIENT [facility]AC[facility] CHARGE DISPOSITION & COMMUNICATION FOLLOW UP 3 MONTHS ELECTRONICALLY SIGNED BY ALLAN DYE ON 11/06/2018 AT 05:42 PM EDT DISCLAIMER : THIS IS A VISIT SUMMARY EXTRACTED FROM THE [employer] CHART. IT IS NOT A COPY OF THE [employer] PROGRESS NOTE. LUIS
== END ==
LOC: M PAIN 08:45
PROVIDERS: ATTEND Nurse Practitioner Family
DX: M51.16 Intervertebral disc disorders with radiculopathy, lumbar region (principal); Z86.59 Personal history of other mental and behavioral disorders; I48.91 Unspecified atrial fibrillation; Z86.718 Personal history of other venous thrombosis and embolism; E78.5 Hyperlipidemia, unspecified; I10 Essential (primary) hypertension; G47.33 Obstructive sleep apnea (adult) (pediatric); Z98.84 Bariatric surgery status; Z87.891 Personal history of nicotine dependence; Z88.5 Allergy status to narcotic agent; Z79.01 Long term (current) use of anticoagulants; Z79.899 Other long term (current) drug therapy

== ENCOUNTER → 2019-01-10 | Outpatient (CLI) | payer OTHER, MEDICAID ==
--- NOTE | 2019-01-22 00:24 | ECWPNPC ---
PATIENT NAME: DHAVAL LUNDBERG : 1965 GENDER: MALE VISIT DATE: 01/10/2019 DISCHARGE DATE: 01/10/19 1155 VISIT LOCKED DATE TIME: PHYSICIAN: ABNER BRIONES RESOURCE: ABNER BRIONES REASON FOR APPOINTMENT 1. BACK HISTORY OF PRESENT ILLNESS HISTORY OF PRESENT ILLNESS: HERE FOR F/U OF CHRONIC RIGHT LOWER THORACIC AND RIGHT LOW BACK PAIN.PAIN HAS ESCALATED LATELY.RATING PAIN VAS 6/10. PAIN THE PATIENT DESCRIBES THE PAIN... FALL RISK SCREENING: SCREENING :NO FALLS REPORTED IN THE LAST YEAR CURRENT MEDICATIONS TAKING VITAMIN B 12 500 MCG LOZENGE 2 LOZENGES ORALLY ONCE A DAY TAKING BUPROPION HCL ER (XL) 150 MG TABLET EXTENDED RELEASE 24 HOUR 1 TABLET IN THE MORNING ORALLY ONCE A DAY TAKING DEPAKOTE ER 500 MG TABLET EXTENDED RELEASE 24 HOUR ORALLY DAILY TAKING ELIQUIS 5 MG TABLET ORALLY BID TAKING FLEXERIL 10 MG TABLET 1 TABLET NEEDED ORALLY THREE TIMES A DAY TAKING LAMICTAL 100 MG TABLET 2 TABLETS ORALLY TWICE A DAY TAKING LUNESTA 3 MG TABLET 1 TABLET IMMEDIATELY BEFORE BEDTIME ORALLY ONCE A DAY TAKING PRAZOSIN HCL 1 MG CAPSULE 1 CAPSULE AT BEDTIME ORALLY ONCE A DAY TAKING SAPHRIS 5 MG TABLET SUBLINGUAL 1 TABLET UNDER THE TONGUE AND ALLOW TO DISSOLVE SUBLINGUAL TWICE A DAY TAKING TRAMADOL HCL 50 MG TABLET 1 TAB ORALLY EVERY 6 HOURS NEEDED/MMD#4 TAKING WELLBUTRIN 100 MG TABLET 1 TABLET ORALLY ONCE A DAY TAKING PANTOPRAZOLE SODIUM 40 MG TABLET DELAYED RELEASE 1 TABLET ORALLY ONCE A DAY TAKING SEROQUEL 300 MG TABLET 1 TABLET AT BEDTIME ORALLY ONCE A DAY TAKING TRAZODONE HCL 50 MG TABLET 1 TABLET AT BEDTIME NEEDED ORALLY ONCE A DAY NOT-TAKING RISPERIDONE 2 MG TABLET 1 TABLET ORALLY TWICE DAILY MEDICATION LIST REVIEWED AND RECONCILED WITH THE PATIENT PAST MEDICAL HISTORY ANXIETY ATRIAL FIBRILLATION BACKACHE DVT RIGHT LEG DEPRESSION HYPERLIPIDEMIA HTN MENINGITIS ENRIQUETA USES CPAP PTSD LUMBAR DDD/BACK PAIN GASTRIC BYPASS ALLERGIES CODEINE SULFATE: THROAT SWELLING - ALLERGY SURGICAL HISTORY GASTRIC BYPASS 10/2015 LOOP RECORDER 07/2016 BOWEL SURGERY S/P PERFORATION 08/2017 FAMILY HISTORY FATHER: 76 YRS MOTHER: ALIVE, CHF CRF-ON PERITONEAL DIALYSIS, DIAGNOSED WITH DIABETES, HEART DISEASE, OTHER SOCIAL HISTORY GENERAL: TOBACCO USE ARE YOU A:FORMER SMOKER OCCASIONAL CIGAR SMOKER HOW LONG HAS IT BEEN SINCE YOU LAST SMOKED? QUIT 08/17/18 SMOKING CESSATION INFORMATION GIVEN05/23/2018 PAIN CLINIC PFS, CLERGY, PUBLIC HEALTH REFERRALS PFS REFERRAL NEEDED?NO CLERGY REFERRAL NEEDED?NO PUBLIC HEALTH REFERRAL NEEDED?NO WAS THE PROVIDER NOTIFIED OF ANY PERTINENT INFO?YES HAS THE PATIENT BEEN EDUCATED REGARDING HIS/HER PLAN OF CARE?YES HAS THE PATIENT BEEN EDUCATED REGARDING PAIN, THE RISK FOR PAIN, THE IMPORTANCE OF EFFECTIVE PAIN MANAGEMENT, AND THE PAIN ASSESSMENT PROCESS?YES LATEX QUESTIONNAIRE LATEX ALLERGY : HAVE YOU EVER DEVELOPED ANY TYPE OF REACTION AFTER HANDLING LATEX PRODUCTS SUCH RUBBER GLOVES, CONDOMS, DIAPHRAGMS, BALLOONS, SOCKS, OR UNDERWEAR?NO LATEX ALLERGY : HAVE YOU EVER DEVELOPED ANY TYPE OF REACTION DURING OR AFTER DENTAL APPOINTMENT, VAGINAL/RECTAL EXAMINATION, SURGICAL PROCEDURE, OR ANY OTHER EXPOSURE?NO LATEX RISK : HAVE YOU EVER HAD ANY DIFFICULTY BREATHING OR HIVES AFTER EATING OR HANDLING ANY FRUITS, OR VEGETABLES; SUCH KIWI, BANANAS, STONE FRUITS, OR CHESTNUTSNO LATEX RISK : DO YOU HAVE A PREVIOUS PERSONAL HISTORY OF MORE THAN NINE SURGERIES, SPINA BIFIDA, OR REPEATED CATHERIZATIONS? NO LATEX RISK : ARE YOU FREQUENTLY EXPOSED TO LATEX PRODUCTS IN YOUR OCCUPATION?NO DATE ASKED : 01/10/2019 ADVANCE DIRECTIVE ADVANCE DIRECTIVE DISCUSSED WITH PATIENT:YES PT DOES NOT HAVE ANY ADVANCED DIRECTIVES AND HE DECLINES INFORMATION ON HCP AT THIS TIME. DIET: SMALL FEEDINGS SINCE GASTRIC BYPASS. [facility] [id number] NONE NO PENTECOSTAL BELIEFS THAT WOULD IMPACT HEALTH CARE. LANGUAGE LANGUAGES SPOKEN:LAO DOMESTIC VIOLENCE DO YOU FEEL SAFE IN YOUR ENVIRONMENT?YES ALCOHOL SCREENING DID YOU HAVE A DRINK CONTAINING ALCOHOL IN THE PAST YEAR?NO POINTS0 INTERPRETATIONNEGATIVE RECREATIONAL DRUG USE DRUG USE?NO LEARNING BARRIERS / SPECIAL NEEDS BARRIERS TO LEARNING?NO HEARING IMPAIRED?NO VISION IMPAIRED?YES :CORRECTIVE LENSES COGNITIVELY IMPAIRED?NO READINESS TO LEARN?YES REVIEWED 05/23/18 NL08/23/18 REVIEWED WITH PT. MEHDID WITH PATIENT 10/09/18 0855 JS. HOSPITALIZATION/MAJOR DIAGNOSTIC PROCEDURE SURGERY RELATED REVIEW OF SYSTEMS REVIEWED BY: PROVIDER: ABNER LEMUS . CONSTITUTIONAL: ANY CHANGE IN YOUR MEDICAL CONDITION? NO . CHILLS NO . FEVER NO . INFECTION: DO YOU HAVE NEW INFECTIONS? NO . DO YOU HAVE HISTORY OF MRSA? NO . MUSCULOSKELETAL: ANY NEW PATTERNS OF PAIN OR NUMBNESS? NO . GASTROENTEROLOGY: ANY NEW CHANGE IN BOWEL CONTROL? NO . GENITOURINARY: ANY NEW CHANGE IN BLADDER CONTROL? NO . IS THERE A CHANCE YOU COULD BE ? NO . HEMATOLOGY/LYMPH: DO YOU TAKE ANY BLOOD THINNERS? (FOR EXAMPLE- COUMADIN, PLAVIX, AGGRENOX, PLATEL, PRADAXA, OR XARELTO) YES, ELIQUIS . WHEN WAS YOUR LAST DOSE? DATE: TIME: . NEUROLOGY: HAVE YOU FALLEN IN THE PAST 12 MONTHS? YES, PT STATES THAT HE FELL 2 WEEKS AGO, FELL WHILE AT HOME, SMALL SURFACE SKIN INJURY, NO REPORT TO ED. . ANY NEW EXTREMITY NUMBNESS OR WEAKNESS? YES, RIGHT LEG, STARTED ABOUT 2 MONTHS AGO . CARDIOLOGY: DO YOU HAVE A PACEMAKER OR DEFIBRILLATOR? NO . RESPIRATORY: HAVE YOU BEEN SICK IN THE PAST WEEK? NO . FEVER NO . FLU LIKE SYMPTOMS? NO . COUGH NO . INTEGUMENTARY: DO YOU HAVE ANY RASHES OR OPEN SORES? NO . ALLERGIC/IMMUNO: ARE YOU ALLERGIC TO IV DYE? NO . ANY NEW ALLERGIES? NO . PSYCHIATRIC: DO YOU HAVE THOUGHTS OF HURTING YOURSELF OR SOMEONE ELSE? YES, PT STATES THAT HE HAS RECURRENT THOUGHTS DAILY, NO ACTIVE THOUGHTS OF HURTING SELF OR OTHERS, PT TAKING DAILY MEDICATIONS TO MANAGE MENTAL THOUGHTS . ARE YOU ABUSED, NEGLECTED, OR IN AN UNSAFE ENVIRONMENT? NO . ENDOCRINOLOGY: ARE YOU DIABETIC? NO . OTHER: DO YOU NEED ANY PRESCRIPTIONS? NO . IF YES, PLEASE LIST: ____ . ANY NEW PROBLEMS WITH YOUR MEDICATIONS? NO . WHEN DID YOU LAST EAT? ____ . WHEN DID YOU LAST DRINK? ____ . WHAT DID YOU LAST DRINK? ____ . NAME OF PERSON DRIVING YOU HOME? ____ . DO YOU HAVE ANY OTHER QUESTIONS OR CONCERNS PT HAS LOOP RECORDER, HAD EPISODE THAT HE HAD TO SEE ELECTROTYPER APPRENTICE, GOING FOR FURTHER TESTING. . VITAL SIGNS WT 233.4 LBS, HT 70 IN, BMI 33.49 INDEX, BP 128/79 MM HG, HR 61 /MIN, RR 16 /MIN, TEMP 97.0 F, OXYGEN SAT % 97%, SAFE IN ENV? (Y/N) Y, NA INITIALS CO 10:52, REVIEWED BY: GEORGE. EXAMINATION GENERAL EXAMINATION: GENERAL AWAKE,ALERT ,PLEAASANT . PSYCH AFFECT NORMAL . LUNGS: LUNG LEWIS ARE CLEAR TO AUSCULTATION BILATERALLY. GOOD MOVEMENT OF AIR . HEART: S1, S2 IN A REGULAR RATE AND RHYTHM. NO SIGNIFICANT MURMURS, RUBS OR GALLOPS NOTED . MUSCULOSKELETAL: MUSCLE STRENGTH TESTING 4/5 BILATERAL LOWER EXTREMITIES. LUMBAR SACRAL SPINE TRIGGER POINTS:, ELICITED WITH PALPATION OVER RIGHT LUMBAR PARAVERTEBRAL MUSCLES AND RESTRICTION OF ROM IN THIS AREA. THORACIC SPINE TRIGGER POINTS ELICITED:RIGHT THORACIC PARASPINALS. ASSESSMENTS MYALGIA, OTHER SITE - M79.18 (PRIMARY) TREATMENT MYALGIA, OTHER SITE NOTES: TPI RIGHT LOW BACK/RIGHT THORACIC. PROCEDURE CODES FA211 ESTABILISHED PATIENT [facility] CHARGE DISPOSITION & COMMUNICATION FOLLOW UP POST (REASON: TPI RIGHT LOW BACK/RIGHT THORACIC) ELECTRONICALLY SIGNED BY ALLAN DYE ON 01/21/2019 AT 11:29 AM EDT DISCLAIMER : THIS IS A VISIT SUMMARY EXTRACTED FROM THE [employer] CHART. IT IS NOT A COPY OF THE [employer] PROGRESS NOTE. LUIS
== END ==
LOC: M PAIN 10:30
PROVIDERS: ATTEND Nurse Practitioner Family
DX: M79.18 Myalgia, other site (principal); F41.9 Anxiety disorder, unspecified; I48.91 Unspecified atrial fibrillation; F32.9 Major depressive disorder, single episode, unspecified; E78.5 Hyperlipidemia, unspecified; I10 Essential (primary) hypertension; G47.33 Obstructive sleep apnea (adult) (pediatric); F43.10 Post-traumatic stress disorder, unspecified; M51.36 Other intervertebral disc degeneration, lumbar region; Z98.84 Bariatric surgery status; Z86.718 Personal history of other venous thrombosis and embolism; Z87.891 Personal history of nicotine dependence; Z79.01 Long term (current) use of anticoagulants; Z79.891 Long term (current) use of opiate analgesic; Z79.899 Other long term (current) drug therapy; Z88.5 Allergy status to narcotic agent

== ENCOUNTER → 2019-02-08 | Outpatient (CLI) | payer OTHER, MEDICAID ==
[~2019-02-08] MED LIST changes: +ASEN5TA; +BUPR300T92; +DIVA500T94; +LAMO100T3; +PRAZ5CAP; +QUET1TAB10; +TRAZ1TAB10
[2019-02-08 09:11] LABS: BASO # 0.1 10^3/uL (0.0-0.2); EOS # 0.7 10^3/uL (0.0-0.50); EOS % 10.3 % (0.0-3.0); HEMATOCRIT 45.1 % (42.0-52.0); HEMOGLOBIN 15.3 g/dl (13.5-17.5); LYMPH % 30.5 % (24.0-44.0); MEAN CORPUSCULAR HEMOGLOBIN 34.3 pg (27.0-33.0); MEAN CORPUSCULAR HGB CONC 33.9 g/dl (32.0-36.5); MEAN CORPUSCULAR VOLUME 101.1 fl (80.0-96.0); MONO # 0.6 10^3/uL (0.0-0.8); MONO % 8.2 % (0.0-5.0); NEUTROPHILS # 3.3 10^3/uL (1.8-7.7); NEUTROPHILS % 49.7 % (36.0-66.0); PLATELET COUNT, AUTOMATED 275 10^3/uL (150-450); RED BLOOD COUNT 4.46 10^6/uL (4.30-6.10); WHITE BLOOD COUNT 6.7 10^3/uL (4.0-10.0)
[2019-02-08 09:47] LABS: ALBUMIN 3.5 GM/DL (3.2-5.2); ALT/SGPT 17 U/L (12-78); BILIRUBIN,TOTAL 0.6 MG/DL (0.2-1.0); BLOOD UREA NITROGEN 13 MG/DL (7-18); CALCIUM LEVEL 8.4 MG/DL (8.5-10.1); CARBON DIOXIDE LEVEL 30 MEQ/L (21-32); CHLORIDE LEVEL 108 MEQ/L (98-107); CHOLESTEROL LEVEL 165 MG/DL (<200); CREATININE FOR GFR 0.86 MG/DL (0.70-1.30); FREE T4 1.16 NG/DL (0.76-1.46); GLOMERULAR FILTRATION RATE > 60.0 (>56); GLUCOSE, FASTING 84 MG/DL (70-100); HDL CHOLESTEROL 50 MG/DL (>40); LDL CHOLESTEROL 99 MG/DL (<100); NON-HDL-C 115 MG/DL; POTASSIUM SERUM 4.3 MEQ/L (3.5-5.1); PROSTATIC SPECIFIC AG MONITOR 0.34 NG/ML (< 4.00); SODIUM LEVEL 140 MEQ/L (136-145); TOTAL PROTEIN 6.5 GM/DL (6.4-8.2); TRIGLYCERIDES LEVEL 82 MG/DL (<150)
== END ==
LOC: M WUC 08:04
PROVIDERS: ATTEND Physician Assistant Medical
DX: R53.83 Other fatigue (principal); I10 Essential (primary) hypertension; E78.2 Mixed hyperlipidemia

== ENCOUNTER → 2019-02-19 | Outpatient (CLI) | payer OTHER, MEDICAID ==
[~2019-02-19] MED LIST changes: -ASEN5TA; +BUPIVACAINE HCL 0.25% 10 ML VIAL As Ordered ONE; +BUPIVACAINE HCL 0.25% 30 ML VIAL As Ordered ONE; -BUPR300T92; -DIVA500T94; -LAMO100T3; -PRAZ5CAP; -QUET1TAB10; -TRAZ1TAB10; +TRIAMCINOLONE ACETONIDE SUSP 40 MG/ML VIAL (J3301) As Ordered ONE; +diazePAM 5 MG TAB As Ordered ONE; +oxyCODONE 5MG TAB As Ordered ONE
--- NOTE | 2019-02-22 00:56 | ECWPNPC ---
PATIENT NAME: DHAVAL LUNDBERG : 1965 GENDER: MALE VISIT DATE: 02/19/2019 DISCHARGE DATE: 02/19/19 1113 VISIT LOCKED DATE TIME: PHYSICIAN: NIHARIKA SANFORD MD RESOURCE: NIHARIKA SANFORD MD REASON FOR APPOINTMENT 1. TPI RIGHT LOW BACK/RIGHT THORACIC HISTORY OF PRESENT ILLNESS HISTORY OF PRESENT ILLNESS: PAIN THE PATIENT DESCRIBES THE PAIN... FALL RISK SCREENING: SCREENING :NO FALLS REPORTED IN THE LAST YEAR CURRENT MEDICATIONS TAKING VITAMIN B 12 500 MCG LOZENGE 2 LOZENGES ORALLY ONCE A DAY TAKING BUPROPION HCL ER (XL) 150 MG TABLET EXTENDED RELEASE 24 HOUR 1 TABLET IN THE MORNING ORALLY ONCE A DAY TAKING DEPAKOTE ER 500 MG TABLET EXTENDED RELEASE 24 HOUR ORALLY DAILY TAKING ELIQUIS 5 MG TABLET ORALLY BID, NOTES: LAST 02/16/19 0700 TAKING FLEXERIL 10 MG TABLET 1 TABLET NEEDED ORALLY THREE TIMES A DAY TAKING LAMICTAL 100 MG TABLET 2 TABLETS ORALLY TWICE A DAY TAKING LUNESTA 3 MG TABLET 1 TABLET IMMEDIATELY BEFORE BEDTIME ORALLY ONCE A DAY TAKING PRAZOSIN HCL 1 MG CAPSULE 1 CAPSULE AT BEDTIME ORALLY ONCE A DAY TAKING SAPHRIS 5 MG TABLET SUBLINGUAL 1 TABLET UNDER THE TONGUE AND ALLOW TO DISSOLVE SUBLINGUAL TWICE A DAY TAKING TRAMADOL HCL 50 MG TABLET 1 TAB ORALLY EVERY 6 HOURS NEEDED/MMD#4 TAKING WELLBUTRIN 100 MG TABLET 1 TABLET ORALLY ONCE A DAY TAKING PANTOPRAZOLE SODIUM 40 MG TABLET DELAYED RELEASE 1 TABLET ORALLY ONCE A DAY TAKING SEROQUEL 300 MG TABLET 1 TABLET AT BEDTIME ORALLY ONCE A DAY TAKING TRAZODONE HCL 50 MG TABLET 1 TABLET AT BEDTIME NEEDED ORALLY ONCE A DAY NOT-TAKING RISPERIDONE 2 MG TABLET 1 TABLET ORALLY TWICE DAILY MEDICATION LIST REVIEWED AND RECONCILED WITH THE PATIENT PAST MEDICAL HISTORY ANXIETY ATRIAL FIBRILLATION BACKACHE DVT RIGHT LEG DEPRESSION HYPERLIPIDEMIA HTN MENINGITIS ENRIQUETA USES CPAP PTSD LUMBAR DDD/BACK PAIN GASTRIC BYPASS ALLERGIES CODEINE SULFATE: THROAT SWELLING - ALLERGY SURGICAL HISTORY GASTRIC BYPASS 10/2015 LOOP RECORDER 07/2016 BOWEL SURGERY S/P PERFORATION 08/2017 FAMILY HISTORY FATHER: 76 YRS MOTHER: ALIVE, CHF CRF-ON PERITONEAL DIALYSIS, DIAGNOSED WITH DIABETES, HEART DISEASE, OTHER SOCIAL HISTORY GENERAL: TOBACCO USE ARE YOU A:FORMER SMOKER OCCASIONAL CIGAR SMOKER HOW LONG HAS IT BEEN SINCE YOU LAST SMOKED? QUIT 08/17/18 SMOKING CESSATION INFORMATION GIVEN05/23/2018 PAIN CLINIC PFS, CLERGY, PUBLIC HEALTH REFERRALS PFS REFERRAL NEEDED?NO CLERGY REFERRAL NEEDED?NO PUBLIC HEALTH REFERRAL NEEDED?NO WAS THE PROVIDER NOTIFIED OF ANY PERTINENT INFO?YES HAS THE PATIENT BEEN EDUCATED REGARDING HIS/HER PLAN OF CARE?YES HAS THE PATIENT BEEN EDUCATED REGARDING PAIN, THE RISK FOR PAIN, THE IMPORTANCE OF EFFECTIVE PAIN MANAGEMENT, AND THE PAIN ASSESSMENT PROCESS?YES LATEX QUESTIONNAIRE LATEX ALLERGY : HAVE YOU EVER DEVELOPED ANY TYPE OF REACTION AFTER HANDLING LATEX PRODUCTS SUCH RUBBER GLOVES, CONDOMS, DIAPHRAGMS, BALLOONS, SOCKS, OR UNDERWEAR?NO LATEX ALLERGY : HAVE YOU EVER DEVELOPED ANY TYPE OF REACTION DURING OR AFTER DENTAL APPOINTMENT, VAGINAL/RECTAL EXAMINATION, SURGICAL PROCEDURE, OR ANY OTHER EXPOSURE?NO LATEX RISK : HAVE YOU EVER HAD ANY DIFFICULTY BREATHING OR HIVES AFTER EATING OR HANDLING ANY FRUITS, OR VEGETABLES; SUCH KIWI, BANANAS, STONE FRUITS, OR CHESTNUTSNO LATEX RISK : DO YOU HAVE A PREVIOUS PERSONAL HISTORY OF MORE THAN NINE SURGERIES, SPINA BIFIDA, OR REPEATED CATHERIZATIONS? NO LATEX RISK : ARE YOU FREQUENTLY EXPOSED TO LATEX PRODUCTS IN YOUR OCCUPATION?NO DATE ASKED : 01/10/2019 ADVANCE DIRECTIVE ADVANCE DIRECTIVE DISCUSSED WITH PATIENT:YES PT DOES NOT HAVE ANY ADVANCED DIRECTIVES AND HE DECLINES INFORMATION ON HCP AT THIS TIME. 02/19/19 DIET: SMALL FEEDINGS SINCE GASTRIC BYPASS. JEHOVAH'S WITNESS [id number] NONE NO PROTESTANT BELIEFS THAT WOULD IMPACT HEALTH CARE. LANGUAGE LANGUAGES SPOKEN:UPPER SORBIAN DOMESTIC VIOLENCE DO YOU FEEL SAFE IN YOUR ENVIRONMENT?YES ALCOHOL SCREENING DID YOU HAVE A DRINK CONTAINING ALCOHOL IN THE PAST YEAR?NO POINTS0 INTERPRETATIONNEGATIVE RECREATIONAL DRUG USE DRUG USE?NO LEARNING BARRIERS / SPECIAL NEEDS BARRIERS TO LEARNING?NO HEARING IMPAIRED?NO VISION IMPAIRED?YES :CORRECTIVE LENSES COGNITIVELY IMPAIRED?NO READINESS TO LEARN?YES REVIEWED 05/23/18 NL08/23/18 REVIEWED WITH PT. ADREVIEWED WITH PATIENT 10/09/18 0894 JSREVIEWED WITH PT 02/19/19 1008 BV. HOSPITALIZATION/MAJOR DIAGNOSTIC PROCEDURE SURGERY RELATED REVIEW OF SYSTEMS REVIEWED BY: PROVIDER: . CONSTITUTIONAL: ANY CHANGE IN YOUR MEDICAL CONDITION? NO . CHILLS NO . FEVER NO . INFECTION: DO YOU HAVE NEW INFECTIONS? NO . DO YOU HAVE HISTORY OF MRSA? NO . MUSCULOSKELETAL: ANY NEW PATTERNS OF PAIN OR NUMBNESS? YES, INCREASING INTENSITY OF RIGHT LOW BACK PAIN THAT RADIATES DOWN RIGHT LEG . GASTROENTEROLOGY: ANY NEW CHANGE IN BOWEL CONTROL? NO . GENITOURINARY: ANY NEW CHANGE IN BLADDER CONTROL? NO . IS THERE A CHANCE YOU COULD BE ? NO . HEMATOLOGY/LYMPH: DO YOU TAKE ANY BLOOD THINNERS? (FOR EXAMPLE- COUMADIN, PLAVIX, AGGRENOX, PLATEL, PRADAXA, OR XARELTO) YES JULYIS LAST TAKEN 02/16/19 0700 . WHEN WAS YOUR LAST DOSE? DATE: TIME: . NEUROLOGY: HAVE YOU FALLEN IN THE PAST 12 MONTHS? PT HAD A FALL ABOUT 3 WEEKS AGO DUE TO LOSS OF BALANCE. DENIES ANY INJURIES OR ED VISIT . ANY NEW EXTREMITY NUMBNESS OR WEAKNESS? NO . CARDIOLOGY: DO YOU HAVE A PACEMAKER OR DEFIBRILLATOR? NO . RESPIRATORY: HAVE YOU BEEN SICK IN THE PAST WEEK? NO . FEVER NO . FLU LIKE SYMPTOMS? NO . COUGH NO . INTEGUMENTARY: DO YOU HAVE ANY RASHES OR OPEN SORES? NO . ALLERGIC/IMMUNO: ARE YOU ALLERGIC TO IV DYE? NO . ANY NEW ALLERGIES? NO . PSYCHIATRIC: DO YOU HAVE THOUGHTS OF HURTING YOURSELF OR SOMEONE ELSE? PT STATES HE SEES A PSYCHIATRIST AND IS ON MEDICATION, BUT STATES HE DOES NOT HAVE THOUGHTS OF HURTING HIMSELF OR OTHERS. DENIES ANY PLANS. . ARE YOU ABUSED, NEGLECTED, OR IN AN UNSAFE ENVIRONMENT? NO . ENDOCRINOLOGY: ARE YOU DIABETIC? NO . OTHER: DO YOU NEED ANY PRESCRIPTIONS? NO . IF YES, PLEASE LIST: ____ . ANY NEW PROBLEMS WITH YOUR MEDICATIONS? NO . WHEN DID YOU LAST EAT? 02/18/19 1800 . WHEN DID YOU LAST DRINK? 02/18/19 2230 . WHAT DID YOU LAST DRINK? WATER . NAME OF PERSON DRIVING YOU HOME? YELLOW CAB . DO YOU HAVE ANY OTHER QUESTIONS OR CONCERNS NO . VITAL SIGNS WT 232.4 LBS, HT 70 IN, BMI 33.34 INDEX, BP 125/71 MM HG, HR 55 /MIN, RR 16 /MIN, TEMP 97.1 F, OXYGEN SAT % 98%, NA INITIALS SC 09:24, REVIEWED BY: BV. ASSESSMENTS MYALGIA, OTHER SITE - M79.18 (PRIMARY) PROCEDURES PN TRIGGER POINT INJECTION WITH STEROIDS PRE PROCEDURE DIAGNOSIS 1. MYALGIA 2. PAIN AT RIGHT LOWER BACK AREA. POST PROCEDURE DIAGNOSIS 1. MYALGIA 2. PAIN AT RIGHT LOWER BACK AREA. PROCEDURE TRIGGER POINT INJECTION AT RIGHT LUMBAR AREA. SURGEON DR. NIHARIKA SANFORD RETAIL SELLING SPECIALIST NONE ANESTHESIA LOCAL PRE PROCEDURE NOTE THE PATIENT HAS A HISTORY OF CHRONIC PAIN AT THE RIGHT LOWER BACK AREA. I EVALUATED THE PATIENT AND REVIEWED THE CHART. THERE IS EVIDENCE OF BANDS OF TISSUE WITH RESTRICTION OF MOVEMENT AND PRESENCE OF TRIGGER POINT AT THE AFFECTED AREA. I WENT OVER THE RISKS, ALTERNATIVES, AND BENEFITS ASSOCIATED WITH THIS PROCEDURE. THE PATIENT WOULD LIKE TO PROCEED AND GIVE CONSENT TO PERFORMED THE PROCEDURE. THE PATIENT DENIES UNEXPLAINABLE WEIGHT LOSS, FEVER, CHILLS, OR NEW CHANGES IN URINARY OR BOWEL CONTROL DESCRIPTION OF PROCEDURE THE PATIENT WAS BROUGHT TO THE PROCEDURE ROOM AND PLACED IN THE SITTING POSITION. THE AREA WAS CLEANED WITH ALCOHOL. THE PROCEDURE WAS DONE USING ASEPTIC STERILE TECHNIQUE. I CHECKED LATERALITY AND THE LEVEL WHERE THE PROCEDURE WAS GOING TO BE PERFORMED WITH THE PATIENT AND THE SUPPORTING STAFF AT THE MOMENT OF THE TIME OUT IN THE PROCEDURE ROOM. USING A 25-GAUGE NEEDLE, TRIGGER POINTS WERE INJECTED AT THE RIGHT LOWER BACK AREA WITH A TOTAL OF 40 ML OF BUPIVACAINE 0.25% AND KENALOG 40 MG. THERE WAS NO EVIDENCE OF BLOOD, PARESTHESIA OR CEREBROSPINAL FLUID DURING THE PROCEDURE. THE PATIENT WAS SENT TO THE RECOVERY ROOM. THE PATIENT WAS MOVING THE EXTREMITIES AND DOING WELL. THERE WAS NO COMPLICATION DURING THE PROCEDURE POST PROCEDURE NOTE THE PATIENT WILL BE SEEN IN A FOLLOW UP IN THE NEXT FEW WEEKS. INSTRUCTIONS WERE GIVEN, QUESTIONS WERE ANSWERED, AND THE PATIENT EXPRESSED UNDERSTANDING AND AGREES WITH THE PLAN. I, MEERA ELIAS, DOCUMENTED THE ABOVE INFORMATION ACTING A SCRIBE FOR DR. SANFORD. I HAVE REVIEWED THE ABOVE DOCUMENT, WRITTEN BY MEERA GRIFFITHS AND I VERIFY THAT IT IS ACCURATE. PROCEDURE CODES 22762 INJ TRIGGER POINT / [facility] DISPOSITION & COMMUNICATION FOLLOW UP 3 WEEKS ELECTRONICALLY SIGNED BY NIHARIKA SANFORD MD, MD ON 02/21/2019 AT 05:30 PM EDT DISCLAIMER : THIS IS A VISIT SUMMARY EXTRACTED FROM THE [facility] CHART. IT IS NOT A COPY OF THE [facility] PROGRESS NOTE. LUIS
== END ==
LOC: M PAIN 09:30
PROVIDERS: ATTEND Anesthesiology
DX: G89.29 Other chronic pain (principal); M54.5 Low back pain; M79.18 Myalgia, other site; Z79.891 Long term (current) use of opiate analgesic; Z79.899 Other long term (current) drug therapy; Z88.5 Allergy status to narcotic agent; Z98.84 Bariatric surgery status; Z87.891 Personal history of nicotine dependence
CPT/HCPCS: 20552; J3301

== ENCOUNTER 2019-03-17 13:14 | Emergency (ER) | payer MEDICAID, OTHER ==
[~2019-03-17] VITALS: Ht 182.9 cm; Wt 104.5 kg
[~2019-03-17 13:14] MED LIST changes: -BUPIVACAINE HCL 0.25% 10 ML VIAL As Ordered ONE; -BUPIVACAINE HCL 0.25% 30 ML VIAL As Ordered ONE; -TRIAMCINOLONE ACETONIDE SUSP 40 MG/ML VIAL (J3301) As Ordered ONE; -diazePAM 5 MG TAB As Ordered ONE; -oxyCODONE 5MG TAB As Ordered ONE
[2019-03-17] MEDS ORDERED: ASEN5TA (13:22)
[2019-03-17] MEDS ORDERED: DIVA500T94 (13:22)
[2019-03-17] MEDS ORDERED: LAMO100T (13:22)
[2019-03-17] MEDS ORDERED: BUPR300T34 (13:22)
[2019-03-17] MEDS ORDERED: QUET1TAB10 (13:22)
[2019-03-17] MEDS ORDERED: PRAZ5CAP (13:22)
[2019-03-17] MEDS ORDERED: TRAZ1TAB10 (13:22)
--- NOTE | 2019-03-17 14:34 | REP ---
CT BRAIN WITHOUT CONTRAST: REASON FOR THE EXAM: Trauma. TECHNIQUE: 4.5 mm contiguous transaxial sections were obtained from the skull base to the cerebral convexities with thin cuts through the posterior fossa without the administration of intravenous contrast. FINDINGS: The ventricles and sulci are consistent with the patient's age. There are no extra-axial fluid collections. There is no mass effect. The deep cerebral white matter is consistent with the patient's age. The orbital and petrous structures , cerebellopontine angles, and posterior fossa are unremarkable. The sella turcica, cavernous, and paracavernous structures are essentially unremarkable. The visualized portions of the paranasal sinuses and mastoid air cells are clear. Images of the skull base show no gross abnormality. IMPRESSION: Essentially unremarkable CT examination of the brain. No change from the prior exam, 05/05/2016. Electronically Signed by Paul Alvarez DO 03/17/2019 03:38 P
[2019-03-17] MEDS ORDERED: ADACEL/BOOSTRIX VACCINE (DIPHTH/PERTUSS/ACELL/TETANUS)0.5ML SYR (90715) IM ONE (15:00)
[2019-03-17 15:07] VITALS: BP 143/85
[2019-03-17] MEDS ORDERED: NEOSPORIN OINT 0.9 GM PKT (FLOOR STOCK) TOP ONE (15:15)
== END 2019-03-17 15:19 | disposition home or self-care (01) ==
LOC: M ED 13:14
DX: S01.01XA Laceration without foreign body of scalp, initial encounter (principal); R51 Headache; W22.09XA Striking against other stationary object, initial encounter; Y92.098 Other place in other non-institutional residence as the place of occurrence of the external cause; Y93.01 Activity, walking, marching and hiking; Y99.8 Other external cause status; I48.91 Unspecified atrial fibrillation; I11.9 Hypertensive heart disease without heart failure; K21.9 Gastro-esophageal reflux disease without esophagitis; I25.10 Atherosclerotic heart disease of native coronary artery without angina pectoris; F43.10 Post-traumatic stress disorder, unspecified; F41.9 Anxiety disorder, unspecified; F32.9 Major depressive disorder, single episode, unspecified; M51.9 Unspecified thoracic, thoracolumbar and lumbosacral intervertebral disc disorder; M48.00 Spinal stenosis, site unspecified; Z98.84 Bariatric surgery status; Z86.718 Personal history of other venous thrombosis and embolism; F17.290 Nicotine dependence, other tobacco product, uncomplicated; Z88.5 Allergy status to narcotic agent; Z79.899 Other long term (current) drug therapy; Z79.01 Long term (current) use of anticoagulants

== ENCOUNTER → 2019-04-03 | Outpatient (CLI) | payer OTHER, MEDICAID ==
[~2019-04-03] MED LIST changes: +ASEN5TA; +BUPR300T34; +DIVA500T94; +LAMO100T; +PRAZ5CAP; +QUET1TAB10; +TRAZ1TAB10
== END ==
LOC: M PAIN 09:45
PROVIDERS: ATTEND Nurse Practitioner Family
DX: M79.18 Myalgia, other site (principal); F41.9 Anxiety disorder, unspecified; I48.91 Unspecified atrial fibrillation; F32.9 Major depressive disorder, single episode, unspecified; I10 Essential (primary) hypertension; E78.5 Hyperlipidemia, unspecified; G47.33 Obstructive sleep apnea (adult) (pediatric); F43.10 Post-traumatic stress disorder, unspecified; M51.36 Other intervertebral disc degeneration, lumbar region; Z98.84 Bariatric surgery status; Z86.718 Personal history of other venous thrombosis and embolism; Z87.891 Personal history of nicotine dependence; Z88.5 Allergy status to narcotic agent; Z79.01 Long term (current) use of anticoagulants; Z79.899 Other long term (current) drug therapy